=== PATIENT | female | born 1935 | race Caucasian/White ===

== ENCOUNTER 2018-11-08 15:45 | Inpatient (IN) ==
[2018-11-08] MEDS: NS 1000 ML 1,000 ML IV SCH (17:38)
[2018-11-08 17:53] LABS: BASOPHILS % (AUTO) 0.6 % (0.2-1.0); EOSINOPHILS # (AUTO) 0.1 x10^3/uL (0.0-0.2); EOSINOPHILS % (AUTO) 2.3 % (0.9-2.9); HEMATOCRIT 36.3 % (36.0-47.0); HEMOGLOBIN 12.3 g/dL (12.0-16.0); LYMPHOCYTES # (AUTO) 2.2 X10^3/uL (1.3-2.9); LYMPHOCYTES % (AUTO) 37.8 % (21.0-51.0); MEAN CORPUSCULAR HEMOGLOBIN 31.8 pg (27.0-34.0); MEAN CORPUSCULAR VOLUME 93.7 fL (80.0-100.0); MEAN PLATELET VOLUME 7.5 fL (7.4-11.0); MONOCYTES # (AUTO) 0.7 x10^3/uL (0.3-0.8); MONOCYTES % (AUTO) 11.2 % (0.0-13.0); NEUTROPHILS # (AUTO) 2.8 x10^3/uL (2.2-4.8); NEUTROPHILS % (AUTO) 48.1 % (42.0-75.0); PLATELET COUNT 216 X10^3/uL (150.0-450.0); RED BLOOD COUNT 3.87 X10^6/uL (3.5-5.4); RED CELL DISTRIBUTION WIDTH 13.8 % (11.6-16.5); WHITE BLOOD COUNT 5.9 X10^3/uL (3.6-10.0)
[2018-11-08 18:03] LABS: ALANINE AMINOTRANSFERASE 14 Units/L (12-78); ALBUMIN 3.5 g/dL (3.4-5.0); ALKALINE PHOSPHATASE 63 Units/L (46-116); ASPARTATE AMINO TRANSFERASE 15 Units/L (15-37); BLOOD UREA NITROGEN 12 mg/dL (7-18); CALCIUM 8.9 mg/dL (8.5-10.1); CHLORIDE 106 mmol/L (98-107); CREATININE 1.29 mg/dL (0.55-1.02); SODIUM 142 mmol/L (136-145); TOTAL PROTEIN 6.5 g/dL (6.4-8.2); eGFR NON BLACK RACES 42 (>60)
[2018-11-08] MEDS: MILK OF MAGNESIA PO SCH (20:21)
[2018-11-08] MEDS: COLACE CAP 100 MG PO SCH (20:21)
[2018-11-08 20:47] VITALS: BMI 19.0
[2018-11-09 01:31] LABS: BILIRUBIN,URINE NEGATIVE (NEGATIVE); BLOOD/HEMOGLOBIN,URINE 3+ (NEGATIVE); GLUCOSE, URINE NEGATIVE (NEGATIVE); KETONES,URINE NEGATIVE (NEGATIVE); LEUKOCYTE ESTERASE ,URINE 3+ (NEGATIVE); NITRITES,URINE NEGATIVE (NEGATIVE); PROTEIN,URINE 2+ (NEGATIVE); UROBILINOGEN,URINE NORMAL (NORMAL)
[2018-11-09] MEDS: NS 1000 ML 1,000 ML IV SCH ×3 (01:32→17:47)
[2018-11-09 01:43] LABS: APPEARANCE,URINE CLOUDY (CLEAR); BACTERIA,URINE 3+ /HPF (NEGATIVE); COLOR,URINE YELLOW (YELLOW); SQUAMOUS EPITHELIAL CELL,UR RARE /HPF (NEGATIVE)
[2018-11-09] MEDS ORDERED: ROCEPHIN VIAL 1 GRAM ONE (01:53)
[2018-11-09] MEDS: ROCEPHIN VIAL 1 GRAM IVP SCH ×2 (02:02→08:58)
--- NOTE | 2018-11-09 04:09 | RAD ---
Chest, 1 view Indication: Shortness of breath, dehydration Comparison: 08/17/2015 Findings: Cardiac silhouette is stable. There is large hiatal hernia. There are chronic interstitial changes of the lungs with hyperinflation, suggesting COPD. No dense infiltrates or pleural effusion. Chronic left humeral head/neck fracture. Generalized osteopenia. There is minimally displaced age-indeterminate fracture of the lateral left 8th rib. Impression: No acute chest process. Chronic findings suggesting COPD. Large hiatal hernia. Age-indeterminate left 8th rib fracture. Reported By:
[2018-11-09 05:40] LABS: BASOPHILS % (AUTO) 0.4 % (0.2-1.0); EOSINOPHILS # (AUTO) 0.1 x10^3/uL (0.0-0.2); EOSINOPHILS % (AUTO) 1.9 % (0.9-2.9); HEMATOCRIT 34.5 % (36.0-47.0); HEMOGLOBIN 11.8 g/dL (12.0-16.0); LYMPHOCYTES # (AUTO) 1.9 X10^3/uL (1.3-2.9); LYMPHOCYTES % (AUTO) 34.8 % (21.0-51.0); MEAN CORPUSCULAR HEMOGLOBIN 31.8 pg (27.0-34.0); MEAN CORPUSCULAR HGB CONC 34.1 g/dL (33.0-35.0); MEAN CORPUSCULAR VOLUME 93.3 fL (80.0-100.0); MEAN PLATELET VOLUME 7.6 fL (7.4-11.0); MONOCYTES # (AUTO) 0.6 x10^3/uL (0.3-0.8); MONOCYTES % (AUTO) 10.5 % (0.0-13.0); NEUTROPHILS # (AUTO) 2.9 x10^3/uL (2.2-4.8); NEUTROPHILS % (AUTO) 52.4 % (42.0-75.0); PLATELET COUNT 198 X10^3/uL (150.0-450.0); RED CELL DISTRIBUTION WIDTH 13.6 % (11.6-16.5); WHITE BLOOD COUNT 5.6 X10^3/uL (3.6-10.0)
[2018-11-09 05:58] LABS: ALANINE AMINOTRANSFERASE 12 Units/L (12-78); ALBUMIN 3.3 g/dL (3.4-5.0); ALKALINE PHOSPHATASE 57 Units/L (46-116); ASPARTATE AMINO TRANSFERASE 14 Units/L (15-37); BLOOD UREA NITROGEN 10 mg/dL (7-18); CALCIUM 8.3 mg/dL (8.5-10.1); CARBON DIOXIDE 26.6 mmol/L (21-32); CHLORIDE 109 mmol/L (98-107); COR CA(FOR HYPOALB) 8.9 mg/dL (8.5-10.1); CREATININE 1.05 mg/dL (0.55-1.02); SODIUM 143 mmol/L (136-145); TOTAL PROTEIN 6.1 g/dL (6.4-8.2); eGFR NON BLACK RACES 53 (>60)
[2018-11-09] MEDS ORDERED: CLEMASTINE PO PRN (10:24)
[2018-11-09] MEDS: ARICEPT TAB 10 MG PO SCH (10:53)
[2018-11-09] MEDS: MEGACE PO SCH ×2 (10:53→20:56)
[2018-11-09] MEDS: CYMBALTA PO SCH (10:53)
[2018-11-09] MEDS: SINGULAIR TAB 10 MG PO SCH (10:54)
[2018-11-09] MEDS: TOPROL XL PO SCH (10:54)
[2018-11-09] MEDS: SYNTHROID 25 mcg TAB PO SCH (10:54)
[2018-11-09] MEDS: OXYBUTYNIN CHLORIDE ER PO SCH (10:54)
[2018-11-09] MEDS: COLACE CAP 100 MG PO SCH ×3 (10:54→20:58)
[2018-11-09] MEDS: ASPIRIN EC 81 MG PO SCH (10:54)
[2018-11-09] MEDS: DUONEB 0.5 MG/3 MG NEB SCH ×4 (13:25→20:25)
--- NOTE | 2018-11-09 17:02 | DR.UPDATE ---
H&P Update History and Physical Update: H&P UPDATE FOR 11/08/2018 History and Physical reviewed and patient examined. Changes noted: Yes with the following: WAS SEEN IN THE OFFICE TODAY FOR COMPLAINTS OF SEVERE WEAKNESS. FAMILY REPORTS THAT SHE HAS NOT BEEN SLEEPING OR EATING WELL. SHE ALSO COMPLAINTED OF COUGH AND SHORTNESS OF BREATH. SHE HAS A HISTORY OF COPD. ON ARRIVAL, LABS REVEALED THE FOLLOWING ABNORMAL VALUES: CREATININE 1.29. URINALYSIS REVEALED: WBC 30-50, RBC 5-10, LEUKOCYTES 3+, BACTERIA 3+. CHEST XRAY REVEALED: NO ACUTE CHEST PROCESS. CHRONIC FINDINGS SUGGESTING COPD. LARGE HIATAL HERNIA. AGE INDETERINATE LEFT 8TH RIB FRACTURE. SHE WAS STARTED ON NORMAL SALINE AT 125ML/HR, ROCEPHIN 1GM IV DAILY, RESPIRATORY TX, AND SUPPLEMLENTAL OXYGEN. WE PLAN TO FOLLOW UP WITH AM LABS AND CONTINUE TO MONITOR.
--- NOTE | 2018-11-09 17:18 | PCM.PROG ---
Progress Note - Progress Note for Day of Date of Exam: 11/09/18 - Subjective Subjective: IS BEING TREATED FOR DEHYDRATION, COPD EXACERBATION, AND URINARY TRACT INFECTION. TODAY, SHE IS ALERT, LYING IN BED ON MORNING ROUNDS. SHE CONTINUES WITH COMPLAINTS OF WEAKNESS, COUGH, AND SHORTNESS OF BREATH. FAMILY REPORTS THAT SHE WAS AGITATED THROUGHOUT THE NIGHT AND DIDNT SLEEP WELL. ON EXAMINATION, HEART IS REGULAR IN RATE AND RHYTHM. BILATERAL LUNGS ARE NOTED WITH DIMINISHED LUNG SOUNDS THROUGHOUT. ABDOMEN IS ROUND, SOFT, AND NON-TENDER WITH NORMAL BOWEL SOUNDS NOTED IN ALL QUADRANTS. HER VITALS THIS MORNING ARE 97.6-54-18-99%-185/90. LABS WERE OBTAINED. ABNORMAL LAB VALUES INCLUDE THE FOLLOWING: HGB 11.8, HCT 34.5, CHLORIDE 109, CREATININE 1.05, CALCIUM 8.3, AST 1 4, TOTAL PROTEIN 6.1, ALBUMIN 3.3. SHE IS CURRENTLY RECEIVING NORMAL SALINE AND ROCEPHIN 1GM IV DAILY. TODAY, WE WILL INCREASE HER ZYPREXA TO 2.5MG PO BID. OTHERWISE, WE WILL CONTINUE WITH CURRENT PLAN OF CARE. WE WILL FOLLOW UP WITH AM LABS AND CONTINUE TO MONITOR. - Past Medical Family Social History Past Med/Fam/Surg Hx: No changes since H&P Allergies: Allergies azithromycin Allergy (Verified 11/08/18 18:08) methylprednisolone Allergy (Verified 11/08/18 18:08) - Review of Systems ROS: No change since H&P - Vital Signs and I&O's Vital Signs: Temperature 97.6 F Pulse Rate [Right] 62 Pulse Rate 60 Respiratory Rate 18 Blood Pressure [Left Arm] 181/88 Blood Pressure [Right Arm] 138/79 Blood Pressure 181/88 O2 Sat by Pulse Oximetry 98 Intake and Output: Intake & Output 11/07/18 11/08/18 11/09/18 11/10/18 11:59 11:59 11:59 11:59 Intake Total 1780 / 1780 360 / 360 Output Total 200 / 200 Balance 1779 1780 160 / 160 - Physical Exam Oriented: Person Eyes: Normal Ear: Normal Nose: Normal Throat: Normal Respiratory: Generalized, Diminished Cardiovascular: Normal : Normal Auscultation: Bowel Sounds: Normal Palpation: Normal Tenderness: Normal Skin: Normal Musculoskeletal: Normal Psychiatric: Normal Mood Description: Calm Affect: Normal Speech Pattern: Clear, Appropriate - Laboratory and Diagnostics Result Diagrams: 11/09/18 04:50 11/09/18 04:50 Labs: Laboratory WBC 5.6 X10^3/uL (3.6-10.0) 11/09/18 04:50 RBC 3.70 X10^6/uL (3.5-5.4) 11/09/18 04:50 Hgb 11.8 g/dL (12.0-16.0) L 11/09/18 04:50 Hct 34.5 % (36.0-47.0) L 11/09/18 04:50 MCV 93.3 fL (80.0-100.0) 11/09/18 04:50 MCH 31.8 pg (27.0-34.0) 11/09/18 04:50 MCHC 34.1 g/dL (33.0-35.0) 11/09/18 04:50 RDW 13.6 % (11.6-16.5) 11/09/18 04:50 Plt Count 198 X10^3/uL (150.0-450.0) 11/09/18 04:50 MPV 7.6 fL (7.4-11.0) 11/09/18 04:50 Neut % (Auto) 52.4 % (42.0-75.0) 11/09/18 04:50 Lymph % (Auto) 34.8 % (21.0-51.0) 11/09/18 04:50 [place] % (Auto) 10.5 % (0.0-13.0) 11/09/18 04:50 Eos % (Auto) 1.9 % (0.9-2.9) 11/09/18 04:50 Baso % (Auto) 0.4 % (0.2-1.0) 11/09/18 04:50 Neut # (Auto) 2.9 x10^3/uL (2.2-4.8) 11/09/18 04:50 Lymph # (Auto) 1.9 X10^3/uL (1.3-2.9) 11/09/18 04:50 [place] # (Auto) 0.6 x10^3/uL (0.3-0.8) 11/09/18 04:50 Eos # (Auto) 0.1 x10^3/uL (0.0-0.2) 11/09/18 04:50 Baso # (Auto) 0.0 X10^3/uL (0.0-0.1) 11/09/18 04:50 Absolute Nucleated RBC 0.1 /100WBC 11/09/18 04:50 Sodium 143 mmol/L (136-145) 11/09/18 04:50 Corrected Sodium TNP 11/09/18 04:50 Potassium 4.3 mmol/L (3.5-5.1) 11/09/18 04:50 Chloride 109 mmol/L (98-107) H 11/09/18 04:50 Carbon Dioxide 26.6 mmol/L (21-32) 11/09/18 04:50 BUN 10 mg/dL (7-18) 11/09/18 04:50 Creatinine 1.05 mg/dL (0.55-1.02) H 11/09/18 04:50 Est GFR (MDRD) Af Amer > 60 (>60) 11/09/18 04:50 Est GFR (MDRD) Non-Af 53 (>60) L 11/09/18 04:50 Glucose 88 mg/dL (65-99) 11/09/18 04:50 Calcium 8.3 mg/dL (8.5-10.1) L 11/09/18 04:50 Corrected Calcium 8.9 mg/dL (8.5-10.1) 11/09/18 04:50 Total Bilirubin 0.30 mg/dL (0.2-1.0) 11/09/18 04:50 AST 14 Units/L (15-37) L 11/09/18 04:50 ALT 12 Units/L (12-78) 11/09/18 04:50 Alkaline Phosphatase 57 Units/L (46-116) 11/09/18 04:50 Total Protein 6.1 g/dL (6.4-8.2) L 11/09/18 04:50 Albumin 3.3 g/dL (3.4-5.0) L 11/09/18 04:50 Globulin 2.8 g/dL (2.5-4.5) 11/09/18 04:50 Albumin/Globulin Ratio 1.2 Ratio (1.1-2.1) 11/09/18 04:50 Specimen Type Clean catch urine 11/09/18 01:20 Urine Color Yellow (YELLOW) 11/09/18 01:20 Urine Appearance Cloudy (CLEAR) 11/09/18 01:20 Urine pH 7.0 (5.0 - 8.0) 11/09/18 01:20 Ur Specific [place] 1.010 (1.000-1.030) 11/09/18 01:20 Urine Protein 2+ (NEGATIVE) 11/09/18 01:20 Urine Glucose (UA) Negative (NEGATIVE) 11/09/18 01:20 Urine Ketones Negative (NEGATIVE) 11/09/18 01:20 Urine Occult Blood 3+ (NEGATIVE) 11/09/18 01:20 Urine Nitrite Negative (NEGATIVE) 11/09/18 01:20 Urine Bilirubin Negative (NEGATIVE) 11/09/18 01:20 Urine Urobilinogen Normal (NORMAL) 11/09/18 01:20 Ur Leukocyte Esterase 3+ (NEGATIVE) 11/09/18 01:20 Urine RBC 5-10 /HPF (NONE SEEN) 11/09/18 01:20 Urine WBC 30-50 /HPF (NONE SEEN) 11/09/18 01:20 Ur Squamous Epith Cells Rare /HPF (NEGATIVE) 11/09/18 01:20 Urine Bacteria 3+ /HPF (NEGATIVE) 11/09/18 01:20 Ur Culture Indicated? No/not indicated 11/09/18 01:20 - Plan (1) Dehydration Status: Acute Plan: NORMAL SALINE AT 125ML/HR, CONTINUE TO MONITOR (2) Urinary tract infection Status: Acute Qualifiers: Urinary tract infection type: acute cystitis Hematuria presence: with hematuria Qualified Code(s): N30.01 - Acute cystitis with hematuria Plan: ROCEPHIN 1GM IV DAILY, CONTINUE TO MONITOR (3) COPD exacerbation Status: Acute Plan: RESPIRATORY TX, SUPPLEMENTAL OXYGEN, CONTINUE TO MONITOR
[2018-11-09] MEDS ORDERED: ROBITUSSIN DM PO PRN (18:30)
[2018-11-09] MEDS: ZOCOR TAB 20 MG PO SCH (20:56)
[2018-11-09] MEDS: NAMENDA TAB 10 MG PO SCH (20:56)
[2018-11-09] MEDS: MILK OF MAGNESIA PO SCH (20:58)
[2018-11-09] MEDS: TUSSIONEX PENNKINETIC SUSP PO PRN (23:32)
[2018-11-10] MEDS: NS 1000 ML 1,000 ML IV SCH (01:38)
[2018-11-10 05:32] LABS: BASOPHILS % (AUTO) 0.5 % (0.2-1.0); EOSINOPHILS # (AUTO) 0.1 x10^3/uL (0.0-0.2); EOSINOPHILS % (AUTO) 1.9 % (0.9-2.9); LYMPHOCYTES # (AUTO) 1.8 X10^3/uL (1.3-2.9); MEAN CORPUSCULAR HEMOGLOBIN 32.2 pg (27.0-34.0); MEAN CORPUSCULAR HGB CONC 34.5 g/dL (33.0-35.0); MEAN CORPUSCULAR VOLUME 93.4 fL (80.0-100.0); MEAN PLATELET VOLUME 7.6 fL (7.4-11.0); MONOCYTES # (AUTO) 0.6 x10^3/uL (0.3-0.8); MONOCYTES % (AUTO) 11.1 % (0.0-13.0); NEUTROPHILS # (AUTO) 3.3 x10^3/uL (2.2-4.8); NEUTROPHILS % (AUTO) 56.5 % (42.0-75.0); PLATELET COUNT 173 X10^3/uL (150.0-450.0); RED BLOOD COUNT 3.43 X10^6/uL (3.5-5.4); RED CELL DISTRIBUTION WIDTH 13.9 % (11.6-16.5); WHITE BLOOD COUNT 5.9 X10^3/uL (3.6-10.0)
[2018-11-10 05:47] LABS: ALANINE AMINOTRANSFERASE 12 Units/L (12-78); ALBUMIN 3.1 g/dL (3.4-5.0); ALKALINE PHOSPHATASE 53 Units/L (46-116); ASPARTATE AMINO TRANSFERASE 13 Units/L (15-37); BLOOD UREA NITROGEN 11 mg/dL (7-18); CALCIUM 8.5 mg/dL (8.5-10.1); CARBON DIOXIDE 24.7 mmol/L (21-32); CHLORIDE 108 mmol/L (98-107); COR CA(FOR HYPOALB) 9.2 mg/dL (8.5-10.1); CREATININE 1.11 mg/dL (0.55-1.02); SODIUM 142 mmol/L (136-145); TOTAL PROTEIN 5.7 g/dL (6.4-8.2); eGFR NON BLACK RACES 50 (>60)
[2018-11-10] MEDS: SYNTHROID 25 mcg TAB PO SCH (06:07)
--- NOTE | 2018-11-10 07:13 | RAD ---
HISTORY: Shortness of breath Study: Chest AP portable Comparison: 11/09/2018 Findings: The heart is within normal limits in size. No congestive heart failure is noted. No acute alveolar infiltrates or pleural effusions are identified. Hyperinflation is present. There is a hiatal hernia present. IMPRESSION: No acute infiltrates Large hiatal hernia Reported By:
[2018-11-10] MEDS: DUONEB 0.5 MG/3 MG NEB SCH ×4 (08:27→20:41)
[2018-11-10] MEDS: COLACE CAP 100 MG PO SCH ×2 (08:49→20:32)
[2018-11-10] MEDS: ARICEPT TAB 10 MG PO SCH (08:49)
[2018-11-10] MEDS: TOPROL XL PO SCH (08:49)
[2018-11-10] MEDS: SINGULAIR TAB 10 MG PO SCH (08:49)
[2018-11-10] MEDS: NAMENDA TAB 10 MG PO SCH ×2 (08:49→20:32)
[2018-11-10] MEDS: ROCEPHIN VIAL 1 GRAM IVP SCH (08:50)
[2018-11-10] MEDS: MEGACE PO SCH ×2 (08:50→20:32)
[2018-11-10] MEDS: CYMBALTA PO SCH (08:50)
[2018-11-10] MEDS: ASPIRIN EC 81 MG PO SCH (08:50)
[2018-11-10] MEDS: OXYBUTYNIN CHLORIDE ER PO SCH (08:50)
[2018-11-10] MEDS: ZOCOR TAB 20 MG PO SCH (20:32)
[2018-11-10] MEDS: MILK OF MAGNESIA PO SCH (20:32)
[2018-11-11] MEDS: TUSSIONEX PENNKINETIC SUSP PO PRN (05:00)
[2018-11-11 05:31] LABS: BASOPHILS % (AUTO) 0.6 % (0.2-1.0); EOSINOPHILS # (AUTO) 0.2 x10^3/uL (0.0-0.2); EOSINOPHILS % (AUTO) 3.1 % (0.9-2.9); HEMATOCRIT 34.3 % (36.0-47.0); HEMOGLOBIN 11.9 g/dL (12.0-16.0); LYMPHOCYTES # (AUTO) 2.1 X10^3/uL (1.3-2.9); LYMPHOCYTES % (AUTO) 31.6 % (21.0-51.0); MEAN CORPUSCULAR HEMOGLOBIN 32.2 pg (27.0-34.0); MEAN CORPUSCULAR HGB CONC 34.8 g/dL (33.0-35.0); MEAN CORPUSCULAR VOLUME 92.7 fL (80.0-100.0); MEAN PLATELET VOLUME 7.8 fL (7.4-11.0); MONOCYTES # (AUTO) 0.7 x10^3/uL (0.3-0.8); MONOCYTES % (AUTO) 10.6 % (0.0-13.0); NEUTROPHILS # (AUTO) 3.6 x10^3/uL (2.2-4.8); NEUTROPHILS % (AUTO) 54.1 % (42.0-75.0); PLATELET COUNT 193 X10^3/uL (150.0-450.0); WHITE BLOOD COUNT 6.7 X10^3/uL (3.6-10.0)
[2018-11-11 05:45] LABS: ALANINE AMINOTRANSFERASE 14 Units/L (12-78); ALBUMIN 3.3 g/dL (3.4-5.0); ALKALINE PHOSPHATASE 60 Units/L (46-116); ASPARTATE AMINO TRANSFERASE 17 Units/L (15-37); BLOOD UREA NITROGEN 10 mg/dL (7-18); CALCIUM 8.7 mg/dL (8.5-10.1); CARBON DIOXIDE 26.3 mmol/L (21-32); CHLORIDE 108 mmol/L (98-107); COR CA(FOR HYPOALB) 9.3 mg/dL (8.5-10.1); CREATININE 1.03 mg/dL (0.55-1.02); SODIUM 144 mmol/L (136-145); eGFR NON BLACK RACES 54 (>60)
[2018-11-11] MEDS: SYNTHROID 25 mcg TAB PO SCH (06:01)
[2018-11-11] MEDS: NS 1000 ML 1,000 ML IV SCH ×2 (06:25→17:57)
--- NOTE | 2018-11-11 08:41 | RAD ---
HISTORY: Shortness of breath Study: Chest AP portable Comparison: 11/10/2018 Findings: The heart is within normal limits in size. The cristi are normal. The lungs are free of acute infiltrates. No pleural effusions are identified. There is a large hiatal hernia present. The bony thorax is unremarkable with the exception of osteopenia and an old healed left humeral neck fracture. IMPRESSION: No acute infiltrates Large hiatal hernia Reported By:
--- NOTE | 2018-11-11 08:45 | PCM.PROG ---
Progress Note - Progress Note for Day of Date of Exam: 11/10/18 - Subjective Subjective: IS BEING TREATED FOR DEHYDRATION, COPD EXACERBATION, AND URINARY TRACT INFECTION. TODAY, SHE IS ALERT, LYING IN BED ON MORNING ROUNDS. SHE CONTINUES WITH COMPLAINTS OF WEAKNESS, COUGH, AND SHORTNESS OF BREATH. FAMILY REPORTS THAT SHE WAS RESTLESS THROUGHOUT THE NIGHT AND IS NOT EATING WELL. THEY ALSO REPORT THAT SHE HAS AN UNSTEADY GAIT. ON EXAMINATION, HEART IS REGULAR IN RATE AND RHYTHM. BILATERAL LUNGS ARE NOTED WITH DIMINISHED LUNG SOUNDS THROUGHOUT. ABDOMEN IS ROUND, SOFT, AND NON-TENDER WITH NORMAL BOWEL SOUNDS NOTED IN ALL QUADRANTS. HER VITALS THIS MORNING ARE 97.8-7 0-20-96%-144/86. LABS WERE OBTAINED. ABNORMAL LAB VALUES INCLUDE THE FOLLOWING: RBC 3.43, HGB 11.0, HCT 32.0, CHLORIDE 108, CREATININE 1.11, AST 13, TOTAL PROTEIN 5.7, ALBUMIN 3.1. SHE IS CURRENTLY RECEIVING NORMAL SALINE AND ROCEPHIN 1GM IV DAILY. TODAY, WE WILL OBTAIN AN ECHO AND HAVE PHYSICAL THERAPY WORK WITH HER. OTHERWISE, WE WILL CONTINUE WITH CURRENT PLAN OF CARE. WE WILL FOLLOW UP WITH AM LABS AND CONTINUE TO MONITOR. - Past Medical Family Social History Past Med/Fam/Surg Hx: No changes since H&P Allergies: Allergies azithromycin Allergy (Verified 11/08/18 18:08) methylprednisolone Allergy (Verified 11/08/18 18:08) - Review of Systems ROS: No change since H&P - Vital Signs and I&O's Vital Signs: Temperature 98.0 F Pulse Rate [Right] 66 Pulse Rate 73 Respiratory Rate 18 Blood Pressure [Left Arm] 118/75 Blood Pressure [Right Arm] 145/90 Blood Pressure 181/88 O2 Sat by Pulse Oximetry 97 Intake and Output: Intake & Output 11/08/18 11/09/18 11/10/18 11/11/18 11:59 11:59 11:59 11:59 Intake Total 1779 / 0 1959 / 1959 580 / 580 Output Total 200 / 200 Balance 178 / 1780 1760 / 1760 580 / 580 - Physical Exam Oriented: Person Eyes: Normal Ear: Normal Nose: Normal Throat: Normal Respiratory: Generalized, Diminished Cardiovascular: Normal : Normal Auscultation: Bowel Sounds: Normal Palpation: Normal Tenderness: Normal Skin: Decreased Turgur Musculoskeletal: Normal Psychiatric: Normal Mood Description: Calm Affect: Normal Speech Pattern: Clear, Appropriate - Laboratory and Diagnostics Result Diagrams: 11/11/18 04:50 11/11/18 04:50 Labs: 11/09/18 01:20 Urine,Clean Catch Urine Culture - Final Escherichia Coli Laboratory WBC 6.7 X10^3/uL (3.6-10.0) 11/11/18 04:50 RBC 3.70 X10^6/uL (3.5-5.4) 11/11/18 04:50 Hgb 11.9 g/dL (12.0-16.0) L 11/11/18 04:50 Hct 34.3 % (36.0-47.0) L 11/11/18 04:50 MCV 92.7 fL (80.0-100.0) 11/11/18 04:50 MCH 32.2 pg (27.0-34.0) 11/11/18 04:50 MCHC 34.8 g/dL (33.0-35.0) 11/11/18 04:50 RDW 14.0 % (11.6-16.5) 11/11/18 04:50 Plt Count 193 X10^3/uL (150.0-450.0) 11/11/18 04:50 MPV 7.8 fL (7.4-11.0) 11/11/18 04:50 Neut % (Auto) 54.1 % (42.0-75.0) 11/11/18 04:50 Lymph % (Auto) 31.6 % (21.0-51.0) 11/11/18 04:50 [place] % (Auto) 10.6 % (0.0-13.0) 11/11/18 04:50 Eos % (Auto) 3.1 % (0.9-2.9) H 11/11/18 04:50 Baso % (Auto) 0.6 % (0.2-1.0) 11/11/18 04:50 Neut # (Auto) 3.6 x10^3/uL (2.2-4.8) 11/11/18 04:50 Lymph # (Auto) 2.1 X10^3/uL (1.3-2.9) 11/11/18 04:50 [place] # (Auto) 0.7 x10^3/uL (0.3-0.8) 11/11/18 04:50 Eos # (Auto) 0.2 x10^3/uL (0.0-0.2) 11/11/18 04:50 Baso # (Auto) 0.0 X10^3/uL (0.0-0.1) 11/11/18 04:50 Absolute Nucleated RBC 0.0 /100WBC 11/11/18 04:50 Sodium 144 mmol/L (136-145) 11/11/18 04:50 Corrected Sodium TNP 11/11/18 04:50 Potassium 3.8 mmol/L (3.5-5.1) 11/11/18 04:50 Chloride 108 mmol/L (98-107) H 11/11/18 04:50 Carbon Dioxide 26.3 mmol/L (21-32) 11/11/18 04:50 BUN 10 mg/dL (7-18) 11/11/18 04:50 Creatinine 1.03 mg/dL (0.55-1.02) H 11/11/18 04:50 Est GFR (MDRD) Af Amer > 60 (>60) 11/11/18 04:50 Est GFR (MDRD) Non-Af 54 (>60) L 11/11/18 04:50 Glucose 93 mg/dL (65-99) 11/11/18 04:50 Calcium 8.7 mg/dL (8.5-10.1) 11/11/18 04:50 Corrected Calcium 9.3 mg/dL (8.5-10.1) 11/11/18 04:50 Total Bilirubin 0.30 mg/dL (0.2-1.0) 11/11/18 04:50 AST 17 Units/L (15-37) 11/11/18 04:50 ALT 14 Units/L (12-78) 11/11/18 04:50 Alkaline Phosphatase 60 Units/L (46-116) 11/11/18 04:50 Total Protein 6.0 g/dL (6.4-8.2) L 11/11/18 04:50 Albumin 3.3 g/dL (3.4-5.0) L 11/11/18 04:50 Globulin 2.7 g/dL (2.5-4.5) 11/11/18 04:50 Albumin/Globulin Ratio 1.2 Ratio (1.1-2.1) 11/11/18 04:50 Specimen Type Clean catch urine 11/09/18 01:20 Urine Color Yellow (YELLOW) 11/09/18 01:20 Urine Appearance Cloudy (CLEAR) 11/09/18 01:20 Urine pH 7.0 (5.0 - 8.0) 11/09/18 01:20 Ur Specific [place] 1.010 (1.000-1.030) 11/09/18 01:20 Urine Protein 2+ (NEGATIVE) 11/09/18 01:20 Urine Glucose (UA) Negative (NEGATIVE) 11/09/18 01:20 Urine Ketones Negative (NEGATIVE) 11/09/18 01:20 Urine Occult Blood 3+ (NEGATIVE) 11/09/18 01:20 Urine Nitrite Negative (NEGATIVE) 11/09/18 01:20 Urine Bilirubin Negative (NEGATIVE) 11/09/18 01:20 Urine Urobilinogen Normal (NORMAL) 11/09/18 01:20 Ur Leukocyte Esterase 3+ (NEGATIVE) 11/09/18 01:20 Urine RBC 5-10 /HPF (NONE SEEN) 11/09/18 01:20 Urine WBC 30-50 /HPF (NONE SEEN) 11/09/18 01:20 Ur Squamous Epith Cells Rare /HPF (NEGATIVE) 11/09/18 01:20 Urine Bacteria 3+ /HPF (NEGATIVE) 11/09/18 01:20 Ur Culture Indicated? No/not indicated 11/09/18 01:20 - Plan (1) Dehydration Status: Acute Plan: NORMAL SALINE AT 125ML/HR, CONTINUE TO MONITOR (2) Urinary tract infection Status: Acute Qualifiers: Urinary tract infection type: acute cystitis Hematuria presence: with hematuria Qualified Code(s): N30.01 - Acute cystitis with hematuria Plan: ROCEPHIN 1GM IV DAILY, CONTINUE TO MONITOR (3) COPD exacerbation Status: Acute Plan: RESPIRATORY TX, SUPPLEMENTAL OXYGEN, CONTINUE TO MONITOR (4) Generalized weakness Status: Acute Plan: PT EVALUATION (5) Failure to thrive Status: Acute Qualifiers: Failure to thrive age range: in adult Qualified Code(s): R62.7 - Adult failure to thrive
[2018-11-11] MEDS: MEGACE PO SCH ×2 (08:48→20:21)
[2018-11-11] MEDS: TOPROL XL PO SCH (08:48)
[2018-11-11] MEDS: ASPIRIN EC 81 MG PO SCH (08:48)
[2018-11-11] MEDS: COLACE CAP 100 MG PO SCH ×2 (08:48→20:21)
[2018-11-11] MEDS: SINGULAIR TAB 10 MG PO SCH (08:48)
[2018-11-11] MEDS: NAMENDA TAB 10 MG PO SCH ×2 (08:49→20:21)
[2018-11-11] MEDS: OXYBUTYNIN CHLORIDE ER PO SCH (08:49)
[2018-11-11] MEDS: ARICEPT TAB 10 MG PO SCH (08:49)
[2018-11-11] MEDS: CYMBALTA PO SCH (09:01)
[2018-11-11] MEDS: DUONEB 0.5 MG/3 MG NEB SCH ×4 (09:58→21:18)
[2018-11-11] MEDS: PROCALAMINE 3 % 1,000 ML IV SCH (10:11)
[2018-11-11] MEDS: ROCEPHIN VIAL 1 GRAM IVP SCH (10:11)
[2018-11-11] MEDS: ZOCOR TAB 20 MG PO SCH (20:21)
[2018-11-11] MEDS: MILK OF MAGNESIA PO SCH (20:22)
[2018-11-12] MEDS: PROCALAMINE 3 % 1,000 ML IV SCH (04:15)
[2018-11-12 05:20] LABS: BASOPHILS % (AUTO) 0.6 % (0.2-1.0); EOSINOPHILS # (AUTO) 0.2 x10^3/uL (0.0-0.2); HEMATOCRIT 32.9 % (36.0-47.0); HEMOGLOBIN 11.2 g/dL (12.0-16.0); LYMPHOCYTES # (AUTO) 1.8 X10^3/uL (1.3-2.9); LYMPHOCYTES % (AUTO) 32.5 % (21.0-51.0); MEAN CORPUSCULAR HGB CONC 34.1 g/dL (33.0-35.0); MEAN PLATELET VOLUME 7.8 fL (7.4-11.0); MONOCYTES # (AUTO) 0.6 x10^3/uL (0.3-0.8); MONOCYTES % (AUTO) 11.4 % (0.0-13.0); NEUTROPHILS # (AUTO) 2.9 x10^3/uL (2.2-4.8); NEUTROPHILS % (AUTO) 51.5 % (42.0-75.0); PLATELET COUNT 183 X10^3/uL (150.0-450.0); RED CELL DISTRIBUTION WIDTH 14.3 % (11.6-16.5); WHITE BLOOD COUNT 5.5 X10^3/uL (3.6-10.0)
[2018-11-12 05:42] LABS: ALANINE AMINOTRANSFERASE 16 Units/L (12-78); ALBUMIN 3.1 g/dL (3.4-5.0); ALKALINE PHOSPHATASE 55 Units/L (46-116); ASPARTATE AMINO TRANSFERASE 16 Units/L (15-37); BLOOD UREA NITROGEN 13 mg/dL (7-18); CALCIUM 8.6 mg/dL (8.5-10.1); CARBON DIOXIDE 25.5 mmol/L (21-32); CHLORIDE 106 mmol/L (98-107); COR CA(FOR HYPOALB) 9.3 mg/dL (8.5-10.1); CREATININE 0.93 mg/dL (0.55-1.02); SODIUM 142 mmol/L (136-145); TOTAL PROTEIN 5.9 g/dL (6.4-8.2); eGFR NON BLACK RACES > 60 (>60)
[2018-11-12] MEDS: SYNTHROID 25 mcg TAB PO SCH (06:00)
--- NOTE | 2018-11-12 07:03 | RAD ---
HISTORY: 83-year-old female with shortness of breath. History of COPD. Study: Frontal view of the chest. Comparison: Chest radiograph 11/11/2018 Findings: Unchanged large hiatal hernia. The trachea is midline. The cardiac silhouette is stably enlarged with continued prominence interstitium perihilar lung markings. The lungs are clear without focal consolidation, effusion or pneumothorax. Soft tissues are unremarkable. Chronic fracture left humerus with osseous structures otherwise unremarkable. IMPRESSION: 1. No acute cardiopulmonary disease with cardiomegaly and COPD. Reported By:
[2018-11-12] MEDS: TOPROL XL PO SCH ×2 (09:15→14:40)
[2018-11-12] MEDS: ROCEPHIN VIAL 1 GRAM IVP SCH (09:15)
[2018-11-12] MEDS: DUONEB 0.5 MG/3 MG NEB SCH ×3 (09:24→16:09)
[2018-11-12] MEDS ORDERED: XYLOCAINE 1 % (PLAIN) ONE (09:25)
[2018-11-12] MEDS ORDERED: LR 1000 ML IV 1,000 ML ONE (09:29)
[2018-11-12] MEDS ORDERED: BACITRACIN VIAL ONE (09:32)
--- NOTE | 2018-11-12 12:00 | RAD ---
HISTORY: 83-year-old female for catheter placement. Study: Frontal view of the chest. Comparison: Chest radiograph this date. Findings: Interval placement right chest chemo port via subclavian approach with distal tip overlying the right atrium. No hemopneumothorax. No other interval change. IMPRESSION: 1. Right chest wall chemo port as above in apparent good position. Reported By:
[2018-11-12] MEDS: COLACE CAP 100 MG PO SCH (13:12)
[2018-11-12] MEDS: ARICEPT TAB 10 MG PO SCH (13:12)
[2018-11-12] MEDS: OXYBUTYNIN CHLORIDE ER PO SCH (13:12)
[2018-11-12] MEDS: SINGULAIR TAB 10 MG PO SCH (13:12)
[2018-11-12] MEDS: NAMENDA TAB 10 MG PO SCH (13:12)
[2018-11-12] MEDS: MEGACE PO SCH (13:13)
[2018-11-12] MEDS: CYMBALTA PO SCH (13:15)
[2018-11-12] MEDS ORDERED: VERSED ONE (15:31)
[2018-11-12] MEDS ORDERED: DIPRIVAN VIAL ONE (15:31)
[2018-11-12 15:43] VITALS: BP 154/88
--- NOTE | 2018-11-15 10:04 | PCM.PROG ---
Progress Note - Progress Note for Day of Date of Exam: 11/11/18 - Subjective Subjective: IS BEING TREATED FOR DEHYDRATION, COPD EXACERBATION, AND URINARY TRACT INFECTION. TODAY, SHE IS ALERT, LYING IN BED ON MORNING ROUNDS. SHE CONTINUES WITH COMPLAINTS OF WEAKNESS, COUGH, AND SHORTNESS OF BREATH. FAMILY REPORTS THAT SHE RESTED BETTER THROUGHOUT THE NIGHT. SHE CONTINUES WITH AN UNSTEADY GAIT. ON EXAMINATION, HEART IS REGULAR IN RATE AND RHYTHM. BILATERAL LUNGS ARE NOTED WITH DIMINISHED LUNG SOUNDS THROUGHOUT. ABDOMEN IS ROUND, SOFT, AND NON-TENDER WITH NORMAL BOWEL SOUNDS NOTED IN ALL QUADRANTS. HER VITALS THIS MORNING ARE 98.0-66-18-97%RA-118/75. LABS WERE OBTAINED. ABNORMAL LAB VALUES INCLUDE THE FOLLOWING: HGB 11.9, HCT 34.3, CHLORIDE 108, CREATININE 1.03, TOTAL PROTEIN 6.0, ALBUMIN 3.3. SHE IS CURRENTLY RECEIVING NORMAL SALINE AND ROCEPHIN 1GM IV DAILY. TODAY, WE WILL CONTINUE WITH CURRENT PLAN OF CARE. OTHERWISE, WE WILL FOLLOW UP WITH AM LABS AND CONTINUE TO MONITOR. - Past Medical Family Social History Past Med/Fam/Surg Hx: No changes since H&P Allergies: Allergies azithromycin Allergy (Verified 11/08/18 18:08) methylprednisolone Allergy (Verified 11/08/18 18:08) - Review of Systems ROS: No change since H&P - Vital Signs and I&O's Vital Signs: Temperature 97.7 F Pulse Rate [Right] 85 Pulse Rate 90 Respiratory Rate 18 Blood Pressure [Left Arm] 140/87 Blood Pressure [Right Arm] 154/88 Blood Pressure 181/88 O2 Sat by Pulse Oximetry 96 Intake and Output: Intake & Output 11/12/18 11/13/18 11/14/18 11/15/18 11:59 11:59 11:59 11:59 Intake Total 2340 / 2340 120 / 120 Output Total 500 / 500 Balance 1840 / 1840 120 / 120 - Physical Exam Oriented: Person Eyes: Normal Ear: Normal Nose: Normal Throat: Normal Respiratory: Generalized, Diminished Cardiovascular: Normal : Normal Auscultation: Bowel Sounds: Normal Palpation: Normal Tenderness: Normal Skin: Decreased Turgur Musculoskeletal: Normal Psychiatric: Normal Mood Description: Calm Affect: Normal Speech Pattern: Clear, Appropriate - Laboratory and Diagnostics Result Diagrams: 11/12/18 04:36 11/12/18 04:36 Labs: 11/09/18 01:20 Urine,Clean Catch Urine Culture - Final Escherichia Coli Laboratory WBC 5.5 X10^3/uL (3.6-10.0) 11/12/18 04:36 RBC 3.50 X10^6/uL (3.5-5.4) 11/12/18 04:36 Hgb 11.2 g/dL (12.0-16.0) L 11/12/18 04:36 Hct 32.9 % (36.0-47.0) L 11/12/18 04:36 MCV 94.0 fL (80.0-100.0) 11/12/18 04:36 MCH 32.0 pg (27.0-34.0) 11/12/18 04:36 MCHC 34.1 g/dL (33.0-35.0) 11/12/18 04:36 RDW 14.3 % (11.6-16.5) 11/12/18 04:36 Plt Count 183 X10^3/uL (150.0-450.0) 11/12/18 04:36 MPV 7.8 fL (7.4-11.0) 11/12/18 04:36 Neut % (Auto) 51.5 % (42.0-75.0) 11/12/18 04:36 Lymph % (Auto) 32.5 % (21.0-51.0) 11/12/18 04:36 [place] % (Auto) 11.4 % (0.0-13.0) 11/12/18 04:36 Eos % (Auto) 4.0 % (0.9-2.9) H 11/12/18 04:36 Baso % (Auto) 0.6 % (0.2-1.0) 11/12/18 04:36 Neut # (Auto) 2.9 x10^3/uL (2.2-4.8) 11/12/18 04:36 Lymph # (Auto) 1.8 X10^3/uL (1.3-2.9) 11/12/18 04:36 [place] # (Auto) 0.6 x10^3/uL (0.3-0.8) 11/12/18 04:36 Eos # (Auto) 0.2 x10^3/uL (0.0-0.2) 11/12/18 04:36 Baso # (Auto) 0.0 X10^3/uL (0.0-0.1) 11/12/18 04:36 Absolute Nucleated RBC 0.0 /100WBC 11/12/18 04:36 Sodium 142 mmol/L (136-145) 11/12/18 04:36 Corrected Sodium TNP 11/12/18 04:36 Potassium 4.0 mmol/L (3.5-5.1) 11/12/18 04:36 Chloride 106 mmol/L (98-107) 11/12/18 04:36 Carbon Dioxide 25.5 mmol/L (21-32) 11/12/18 04:36 BUN 13 mg/dL (7-18) 11/12/18 04:36 Creatinine 0.93 mg/dL (0.55-1.02) 11/12/18 04:36 Est GFR (MDRD) Af Amer > 60 (>60) 11/12/18 04:36 Est GFR (MDRD) Non-Af > 60 (>60) 11/12/18 04:36 Glucose 93 mg/dL (65-99) 11/12/18 04:36 Calcium 8.6 mg/dL (8.5-10.1) 11/12/18 04:36 Corrected Calcium 9.3 mg/dL (8.5-10.1) 11/12/18 04:36 Total Bilirubin 0.30 mg/dL (0.2-1.0) 11/12/18 04:36 AST 16 Units/L (15-37) 11/12/18 04:36 ALT 16 Units/L (12-78) 11/12/18 04:36 Alkaline Phosphatase 55 Units/L (46-116) 11/12/18 04:36 Total Protein 5.9 g/dL (6.4-8.2) L 11/12/18 04:36 Albumin 3.1 g/dL (3.4-5.0) L 11/12/18 04:36 Globulin 2.8 g/dL (2.5-4.5) 11/12/18 04:36 Albumin/Globulin Ratio 1.1 Ratio (1.1-2.1) 11/12/18 04:36 Specimen Type Clean catch urine 11/09/18 01:20 Urine Color Yellow (YELLOW) 11/09/18 01:20 Urine Appearance Cloudy (CLEAR) 11/09/18 01:20 Urine pH 7.0 (5.0 - 8.0) 11/09/18 01:20 Ur Specific [place] 1.010 (1.000-1.030) 11/09/18 01:20 Urine Protein 2+ (NEGATIVE) 11/09/18 01:20 Urine Glucose (UA) Negative (NEGATIVE) 11/09/18 01:20 Urine Ketones Negative (NEGATIVE) 11/09/18 01:20 Urine Occult Blood 3+ (NEGATIVE) 11/09/18 01:20 Urine Nitrite Negative (NEGATIVE) 11/09/18 01:20 Urine Bilirubin Negative (NEGATIVE) 11/09/18 01:20 Urine Urobilinogen Normal (NORMAL) 11/09/18 01:20 Ur Leukocyte Esterase 3+ (NEGATIVE) 11/09/18 01:20 Urine RBC 5-10 /HPF (NONE SEEN) 11/09/18 01:20 Urine WBC 30-50 /HPF (NONE SEEN) 11/09/18 01:20 Ur Squamous Epith Cells Rare /HPF (NEGATIVE) 11/09/18 01:20 Urine Bacteria 3+ /HPF (NEGATIVE) 11/09/18 01:20 Ur Culture Indicated? No/not indicated 11/09/18 01:20 - Plan (1) Dehydration Status: Acute Plan: NORMAL SALINE AT 125ML/HR, CONTINUE TO MONITOR (2) Urinary tract infection Status: Acute Qualifiers: Urinary tract infection type: acute cystitis Hematuria presence: with hematuria Qualified Code(s): N30.01 - Acute cystitis with hematuria Plan: ROCEPHIN 1GM IV DAILY, CONTINUE TO MONITOR (3) COPD exacerbation Status: Acute Plan: RESPIRATORY TX, SUPPLEMENTAL OXYGEN, CONTINUE TO MONITOR (4) Generalized weakness Status: Acute Plan: PT EVALUATION (5) Failure to thrive Status: Acute Qualifiers: Failure to thrive age range: in adult Qualified Code(s): R62.7 - Adult failure to thrive
== END 2018-11-12 16:35 | disposition hospice, home (50) | DRG 690 ==
LOC: MED/SURG
PROVIDERS: ADMIT Internal Medicine; ATTEND Internal Medicine
DX: G30.0 Alzheimer's disease with early onset; D51.9 Vitamin B12 deficiency anemia, unspecified; R53.1 Weakness; R62.7 Adult failure to thrive; R06.02 Shortness of breath; E03.8 Other specified hypothyroidism; J44.1 Chronic obstructive pulmonary disease with (acute) exacerbation; E46 Unspecified protein-calorie malnutrition; X58.XXXA Exposure to other specified factors, initial encounter; K44.9 Diaphragmatic hernia without obstruction or gangrene; R26.89 Other abnormalities of gait and mobility; S22.32XA Fracture of one rib, left side, initial encounter for closed fracture; B96.29 Other Escherichia coli [E. coli] as the cause of diseases classified elsewhere; N30.01 Acute cystitis with hematuria; E86.0 Dehydration; I87.2 Venous insufficiency (chronic) (peripheral)
CPT/HCPCS: 36415; 71010; 71045; 76000; 80053; 81001; 85025; 87086; 87088; 87186; 93306; 94640; 94760; 97116; 97162; 97166; 97530; 97535; 99100; A4222; B5200; J3490; S0179; G0378; J0696; J1642; J2250; J2704; J7030; J7120; J7620

== ENCOUNTER 2018-12-10 08:26 | Inpatient (IN) ==
[2018-12-10 08:38] VITALS: BMI 19.3
[2018-12-10] MEDS ORDERED: CATAPRES TAB 0.1 MG PO ONE (09:05)
[2018-12-10] MEDS ORDERED: CATAPRES TAB 0.1 MG ONE (09:06)
[2018-12-10 09:12] LABS: BASOPHILS % (AUTO) 0.5 % (0.2-1.0); EOSINOPHILS # (AUTO) 0.4 x10^3/uL (0.0-0.2); EOSINOPHILS % (AUTO) 6.9 % (0.9-2.9); HEMATOCRIT 32.9 % (36.0-47.0); HEMOGLOBIN 11.1 g/dL (12.0-16.0); LYMPHOCYTES # (AUTO) 1.5 X10^3/uL (1.3-2.9); LYMPHOCYTES % (AUTO) 25.3 % (21.0-51.0); MEAN CORPUSCULAR HEMOGLOBIN 31.8 pg (27.0-34.0); MEAN CORPUSCULAR HGB CONC 33.6 g/dL (33.0-35.0); MEAN CORPUSCULAR VOLUME 94.7 fL (80.0-100.0); MEAN PLATELET VOLUME 7.3 fL (7.4-11.0); MONOCYTES # (AUTO) 0.6 x10^3/uL (0.3-0.8); MONOCYTES % (AUTO) 9.8 % (0.0-13.0); NEUTROPHILS # (AUTO) 3.4 x10^3/uL (2.2-4.8); NEUTROPHILS % (AUTO) 57.5 % (42.0-75.0); PLATELET COUNT 166 X10^3/uL (150.0-450.0); RED BLOOD COUNT 3.47 X10^6/uL (3.5-5.4); RED CELL DISTRIBUTION WIDTH 13.6 % (11.6-16.5)
--- NOTE | 2018-12-10 09:21 | DR.EXTPAIN ---
HPI Time seen Time Seen by Provider: 12/10/18 08:33 PCP Primary Care Physician: SANFORD Complaint/Symptoms Chief Complaint Doctor Comments: Two days ago, fell at home, complained of left hip pain according spouse. She has not been feeling well; lying around house. Denies vomiting, diarrhea or fever. Weak. No recent history of heart problems. PMH HTN,Arthritis, Alzheimer, CKD,Altered mental Status. Chief Complaint:: FAMILY STATED THAT PATIENT FELL TIMES 2 DAYS AND IS C/O OF HIP AND LEGS HURTING. STATED THAT HE BELIEVES HER LEGS JUST GAVE OUT ON HER THAT HE HAD WALKED OUT OF THE ROOM AND CAME BACK AND SHE WAS LYING ON THE FLOOR. Source History Provided: Patient and EMS Mode of arrival Mode of Arrival: EMS Timing Onset of Chief Complaint: 12/08/18 PMH PMH Past Medical History: Yes Past Medical History: Alzheimers, Anxiety, Arthritis, COPD, Coronary Artery Dis ease, Dementia, Depression, Dyslipidemia, GERD and Hypertension Past Surgical History: Yes Surgical History: Cholecystectomy and Hysterectomy Family History History of Family Medical Conditions: Yes Family Medical History: Diabetes Mellitus, [place], Coronary Artery Disease and Hyper tension Social History Does patient currently use any type of tobacco product: No Have you used tobacco products in the last 12 months: No Type of Tobacco Use: None Does any household member use tobacco: No Alcohol Use: None Do you use any recreational Drugs:: No Lives With: Family Lives Where: Home infectious screening In the last 2 months have you had wt loss of >10#?: NO Have you had fever, night sweats or hemotysis?: No Have you traveled outside the country in the last 6 months?: No Isolation: Standard ROS Review of Systems Constitutional: No Symptoms Reported Eyes: No Symptoms Reported ENTM: No Symptoms Reported Respiratoy: No Symptoms Reported Cardiovascular: No Symptoms Reported Gastrointestinal/Abdominal: No Symptoms Reported Genitourinary: No Symptoms Reported Neurological: No Symptoms Reported Musculoskeletal: No Symptoms Reported Integumentary: No Symptoms Reported Endocrine: No Symptoms Reported Psychiatric: Other (Altered Mental Status) All Other Systems: Reviewed and Negative PE Vital Signs Vitals: Temperature 97.5 F Pulse Rate [Right Brachial] 72 Pulse Rate 69 Respiratory Rate 20 Blood Pressure [Left Arm] 202/149 Blood Pressure [Right Arm] 154/88 Blood Pressure 243/129 O2 Sat by Pulse Oximetry 97 General Limitations: No Limitations General Appearance: Alert and Other (dyspnea) Head Head Exam: Normal Inspection, Atraumatic, Normocephalic and Other Eyes Eye exam: Normal Appearance, PERRL and EOMI ENT ENT Exam: Normal Exam, Normal Oropharynx and Normal External Ear Exam Neck Neck Exam: Normal Inspection and Full ROM Chest Chest Inspection: Normal Inspection and Symmetric Chest Wall Rise Respiratory Respiratory Exam: Normal Lung Sounds Bilat and Other (Dyspnea) Respiratory Exam: Bilateral: Clear to Auscultation Cardiovascular Cardiovascular Exam: Regular Rate and Normal Rhythm Abdominal Exam Abdominal Exam: Normal Inspection, Normal Bowel Sounds and Soft Upper Extremities Shoulder Exam: Normal Inspection and Full ROM Arm Exam: Normal Inspection and Full ROM Elbow Exam: Normal Inspection and Full ROM Forearm Exam: Normal Inspection and Full ROM Hand Exam: Normal Inspection and Full ROM Neuromotor Exam: Normal Exam, Wrist Extension and Other (weak grasp bilaterally) Neurosensory Exam: Normal Exam Upper Ext. Vascular Exam: Capillary Refill Lower Extremities Hip/Pelvis Exam: Normal Inspection and Tenderness (not on exam; spouse states she claimes of pain) Knee Exam: Normal Inspection and Abrasion Lower Leg Exam: Normal Inspection and Full ROM Ankle Exam: Normal Inspection Foot/Toe Exam: Normal Inspection Neurovascular/Tendon Exam: Normal Capillary Refill Back Back Exam: Normal Inspection and Full ROM Neurological Neurological Exam: Alert, Oriented X3 and CN II-XII Intact Psychiatric Psychiatric Exam: Normal Affect and Normal Mood Skin Skin Exam: Warm and Dry Type of Lesion: Rash Distribution: Generalized MDM Differential Diagnosis Differential Diagnosis: Fracture, Sprain and Other (PE, Influenza) ROR Labs Reviewed Laboratory Results Reviewed?: Yes Result Diagrams: 12/10/18 08:55 12/10/18 08:55 Laboratory: WBC 6.0 X10^3/uL (3.6-10.0) 12/10/18 08:55 RBC 3.47 X10^6/uL (3.5-5.4) L 12/10/18 08:55 Hgb 11.1 g/dL (12.0-16.0) L 12/10/18 08:55 Hct 32.9 % (36.0-47.0) L 12/10/18 08:55 MCV 94.7 fL (80.0-100.0) 12/10/18 08:55 MCH 31.8 pg (27.0-34.0) 12/10/18 08:55 MCHC 33.6 g/dL (33.0-35.0) 12/10/18 08:55 RDW 13.6 % (11.6-16.5) 12/10/18 08:55 Plt Count 166 X10^3/uL (150.0-450.0) 12/10/18 08:55 MPV 7.3 fL (7.4-11.0) L 12/10/18 08:55 Neut % (Auto) 57.5 % (42.0-75.0) 12/10/18 08:55 Lymph % (Auto) 25.3 % (21.0-51.0) 12/10/18 08:55 [place] % (Auto) 9.8 % (0.0-13.0) 12/10/18 08:55 Eos % (Auto) 6.9 % (0.9-2.9) H 12/10/18 08:55 Baso % (Auto) 0.5 % (0.2-1.0) 12/10/18 08:55 Neut # (Auto) 3.4 x10^3/uL (2.2-4.8) 12/10/18 08:55 Lymph # (Auto) 1.5 X10^3/uL (1.3-2.9) 12/10/18 08:55 [place] # (Auto) 0.6 x10^3/uL (0.3-0.8) 12/10/18 08:55 Eos # (Auto) 0.4 x10^3/uL (0.0-0.2) H 12/10/18 08:55 Baso # (Auto) 0.0 X10^3/uL (0.0-0.1) 12/10/18 08:55 Absolute Nucleated RBC 0.0 /100WBC 12/10/18 08:55 Other Results Comments: Findings: There is a port present on the right. The heart is mildly enlarged. No congestive heart failure is noted. No acute alveolar infil trates or pleural effusions are identified. There is a hiatal hernia present. The bony thorax is unremarkable with the exception of osteopenia. Impression: Mild cardiomegaly without congestive heart failure, clear lungs, osteopenia. XRAY XRAY Interpreted by: Radiologist EKG Rate: 66 [place]: Normal Rhythm: NSR
--- NOTE | 2018-12-10 09:23 | RAD ---
HISTORY: Shortness of breath Study: Chest AP portable Comparison: 11/12/2018 Findings: There is a port present on the right. The heart is mildly enlarged. No congestive heart failure is noted. No acute alveolar infiltrates or pleural effusions are identified. There is a hiatal hernia present. The bony thorax is unremarkable with the exception of osteopenia. IMPRESSION: Mild cardiomegaly without congestive heart failure Lungs clear Osteopenia Reported By:
[2018-12-10 09:43] LABS: ALANINE AMINOTRANSFERASE 15 Units/L (12-78); ALBUMIN 3.5 g/dL (3.4-5.0); ALKALINE PHOSPHATASE 65 Units/L (46-116); ASPARTATE AMINO TRANSFERASE 18 Units/L (15-37); BLOOD UREA NITROGEN 11 mg/dL (7-18); CALCIUM 9.1 mg/dL (8.5-10.1); CARBON DIOXIDE 25.6 mmol/L (21-32); CHLORIDE 108 mmol/L (98-107); CKMB % 0.8 % (<4); CREATINE KINASE 127 Units/L (26-192); CREATINE KINASE MB < 1.0 ng/mL (0-4.0); CREATININE 1.15 mg/dL (0.55-1.02); SODIUM 143 mmol/L (136-145); TOTAL PROTEIN 6.5 g/dL (6.4-8.2); TROPONIN I < 0.02 ng/mL (0-1.5); eGFR NON BLACK RACES 48 (>60)
--- NOTE | 2018-12-10 10:15 | RAD ---
HISTORY: Fall 2 days ago, hip pain. Study: Bilateral two-view hips Comparison: Plain films and CT scan of the pelvis done 01/24/2015. Technique: AP pelvis and bilateral frog-leg lateral views of the hips are provided. Findings: There is a nondisplaced fracture of the midportion of the left inferior pubic ramus. This was not present on the prior studies. There is an old avulsion fracture of the greater trochanter of the left hip which was present on prior studies and is unchanged. No evidence of acute femoral head or neck fracture is seen. Both femoral heads are well seated within the acetabular regions on both views. IMPRESSION: Nondisplaced fracture of the midportion of the left inferior pubic ramus. This appears to be acute or subacute and not present on the 2015 studies. Old avulsion fracture of the greater trochanter on the left. No acute femoral head or neck fracture is seen. Reported By:
--- NOTE | 2018-12-10 10:29 | DR.EXTPAIN ---
HPI Time seen Time Seen by Provider: 12/10/18 08:33 PCP Primary Care Physician: SANFORD Complaint/Symptoms Chief Complaint:: FAMILY STATED THAT PATIENT FELL TIMES 2 DAYS AND IS C/O OF HIP AND LEGS HURTING. STATED THAT HE BELIEVES HER LEGS JUST GAVE OUT ON HER THAT HE HAD WALKED OUT OF THE ROOM AND CAME BACK AND SHE WAS LYING ON THE FLOOR. Source History Provided: Patient and EMS Mode of arrival Mode of Arrival: EMS Timing Onset of Chief Complaint: 12/08/18 PMH PMH Past Medical History: Yes Past Medical History: Alzheimers, Anxiety, Arthritis, COPD, Coronary Artery Disease, Dementia, Depression, Dyslipidemia, GERD and Hypertension Past Surgical History: Yes Surgical History: Cholecystectomy and Hysterectomy Family History History of Family Medical Conditions: Yes Family Medical History: Diabetes Mellitus, [place], Coronary Artery Disease and Hypertension Social History Does patient currently use any type of tobacco product: No Have you used tobacco products in the last 12 months: No Type of Tobacco Use: None Does any household member use tobacco: No Alcohol Use: None Do you use any recreational Drugs:: No Lives With: Family Lives Where: Home infectious screening In the last 2 months have you had wt loss of >10#?: NO Have you had fever, night sweats or hemotysis?: No Have you traveled outside the country in the last 6 months?: No Isolation: Standard ROS Review of Systems Constitutional: No Symptoms Reported Eyes: No Symptoms Reported ENTM: No Symptoms Reported Respiratoy: Short of Breath Gastrointestinal/Abdominal: No Symptoms Reported Genitourinary: No Symptoms Reported Neurological: Weakness Integumentary: No Symptoms Reported Hematologic/Lymphatic: No Symptoms Reported Endocrine: No Symptoms Reported Psychiatric: No Symptoms Reported All Other Systems: Reviewed and Negative PE Vital Signs Vitals: Temperature 97.5 F Pulse Rate [Right Brachial] 68 Pulse Rate 69 Respiratory Rate 20 Blood Pressure [Left Arm] 184/99 Blood Pressure [Right Arm] 154/88 Blood Pressure 243/129 O2 Sat by Pulse Oximetry 98 General Limitations: Physical Limitation General Appearance: Alert and In No Apparent Distress Head Head Exam: Normal Inspection, Atraumatic and Normocephalic Eyes Eye exam: Normal Appearance, PERRL and EOMI ENT ENT Exam: Normal Exam, Normal Oropharynx and Normal External Ear Exam Neck Neck Exam: Normal Inspection, Full ROM and Trachea Midline Chest Chest Inspection: Normal Inspection and Symmetric Chest Wall Rise Respiratory Respiratory Exam: Respiratory Distress Respiratory Exam: Bilateral: Clear to Auscultation Cardiovascular Cardiovascular Exam: Regular Rate and Normal Rhythm Abdominal Exam Abdominal Exam: Normal Inspection, Normal Bowel Sounds and Soft Extremities Extremities Exam: Other Upper Extremities Arm Exam: Normal Inspection Elbow Exam: Normal Inspection Hand Exam: Normal Inspection Neurosensory Exam: Normal Exam Lower Extremities Hip/Pelvis Exam: Normal Inspection Knee Exam: Normal Inspection Lower Leg Exam: Normal Inspection Foot/Toe Exam: Normal Inspection Neurovascular/Tendon Exam: Normal Capillary Refill Gait Exam: Observed & Limited by Pain Back Back Exam: Normal Inspection Neurological Neurological Exam: Alert, Oriented X3 and CN II-XII Intact Psychiatric Psychiatric Exam: Flat Affect Skin Skin Exam: Warm, Dry and Intact MDM Differential Diagnosis Differential Diagnosis: Contusion and Fracture COURSE Consultation Called: 10:35 Consultation Comments: Patient discussed with Dr Lira who agreed to admit for further evaluation ROR Labs Reviewed Laboratory Results Reviewed?: Yes Result Diagrams: 12/10/18 08:55 12/10/18 08:55 Laboratory: WBC 6.0 X10^3/uL (3.6-10.0) 12/10/18 08:55 RBC 3.47 X10^6/uL (3.5-5.4) L 12/10/18 08:55 Hgb 11.1 g/dL (12.0-16.0) L 12/10/18 08:55 Hct 32.9 % (36.0-47.0) L 12/10/18 08:55 MCV 94.7 fL (80.0-100.0) 12/10/18 08:55 MCH 31.8 pg (27.0-34.0) 12/10/18 08:55 MCHC 33.6 g/dL (33.0-35.0) 12/10/18 08:55 RDW 13.6 % (11.6-16.5) 12/10/18 08:55 Plt Count 166 X10^3/uL (150.0-450.0) 12/10/18 08:55 MPV 7.3 fL (7.4-11.0) L 12/10/18 08:55 Neut % (Auto) 57.5 % (42.0-75.0) 12/10/18 08:55 Lymph % (Auto) 25.3 % (21.0-51.0) 12/10/18 08:55 [place] % (Auto) 9.8 % (0.0-13.0) 12/10/18 08:55 Eos % (Auto) 6.9 % (0.9-2.9) H 12/10/18 08:55 Baso % (Auto) 0.5 % (0.2-1.0) 12/10/18 08:55 Neut # (Auto) 3.4 x10^3/uL (2.2-4.8) 12/10/18 08:55 Lymph # (Auto) 1.5 X10^3/uL (1.3-2.9) 12/10/18 08:55 [place] # (Auto) 0.6 x10^3/uL (0.3-0.8) 12/10/18 08:55 Eos # (Auto) 0.4 x10^3/uL (0.0-0.2) H 12/10/18 08:55 Baso # (Auto) 0.0 X10^3/uL (0.0-0.1) 12/10/18 08:55 Absolute Nucleated RBC 0.0 /100WBC 12/10/18 08:55 D-Dimer 2220 ng/mL (0-400) H* 12/10/18 08:55 Sodium 143 mmol/L (136-145) 12/10/18 08:55 Corrected Sodium TNP 12/10/18 08:55 Potassium 3.9 mmol/L (3.5-5.1) 12/10/18 08:55 Chloride 108 mmol/L (98-107) H 12/10/18 08:55 Carbon Dioxide 25.6 mmol/L (21-32) 12/10/18 08:55 BUN 11 mg/dL (7-18) 12/10/18 08:55 Creatinine 1.15 mg/dL (0.55-1.02) H 12/10/18 08:55 Est GFR (MDRD) Af Amer 58 (>60) L 12/10/18 08:55 Est GFR (MDRD) Non-Af 48 (>60) L 12/10/18 08:55 Glucose 85 mg/dL (65-99) 12/10/18 08:55 Calcium 9.1 mg/dL (8.5-10.1) 12/10/18 08:55 Corrected Calcium TNP 12/10/18 08:55 Total Bilirubin 0.60 mg/dL (0.2-1.0) 12/10/18 08:55 AST 18 Units/L (15-37) 12/10/18 08:55 ALT 15 Units/L (12-78) 12/10/18 08:55 Alkaline Phosphatase 65 Units/L (46-116) 12/10/18 08:55 Creatine Kinase 127 Units/L (26-192) 12/10/18 08:55 CK-MB (CK-2) < 1.0 ng/mL (0-4.0) 12/10/18 08:55 CK/CKMB % Calc 0.8 % (<4) 12/10/18 08:55 Troponin I < 0.02 ng/mL (0-1.5) 12/10/18 08:55 Total Protein 6.5 g/dL (6.4-8.2) 12/10/18 08:55 Albumin 3.5 g/dL (3.4-5.0) 12/10/18 08:55 Globulin 3.0 g/dL (2.5-4.5) 12/10/18 08:55 Albumin/Globulin Ratio 1.2 Ratio (1.1-2.1) 12/10/18 08:55 Influenza Type A (PCR) Negative (NEGATIVE) 12/10/18 09:06 Influenza Type B (PCR) Negative (NEGATIVE) 12/10/18 09:06 Other Results Comments: Bilateral hips: There is a nondisplaced fracture of the midportion of the left inferior pubic ramus. This was not present on the prior studies (01/24/15). There is an old avulsion fracture of the greater trochanter of the left hip which was present on prior studies and is unchanged. No evidence of acute femoral head or neck fracture is seen. Both femoral heads are well seated within the acetabular regions on both views. CTA: No evidence of acute pulmonary thromboembolic disease. No evidence of acute pulmonary abnormality. XRAY XRAY Interpreted by: Radiologist ADDITIONAL NOTES Additional Notes Additional Notes: Admitted to the service of Dr. Flores
--- NOTE | 2018-12-10 11:21 | CT ---
STUDY: CTA CHEST WITH CONTRAST History: Shortness of breath, chronic. Status post fall 2 days ago. Elevated D-dimer. Comparison: None. Technique: Multiple axial images of the chest were obtained from the thoracic inlet to the upper abdomen after the administration of IV contrast. Image acquisition was optimized for evaluation of pulmonary arterial system. 3D, coronal and sagittal reformatted images were performed and reviewed. Automated exposure control (AEC) was utilized to adjust the MA and/or kV. Findings: There is no evidence of abnormal filling defect in the main pulmonary arteries and their major branches to indicate presence of acute pulmonary thromboembolic disease. There is no evidence of aortic aneurysm or dissection. There is no significant pericardial effusion. Multiple lymph nodes, likely reactive, are noted in the mediastinum. No pathologically enlarged lymph nodes are identified. There is some atelectasis versus scarring in the both lung bases. There are underlying changes of COPD in both lungs. There is no evidence of consolidation, significant infiltrate, effusion or pneumothorax. There is a large hiatal hernia. There appears to be a calculus in a dilated left renal pelvis, partially imaged. There are multiple chronic appearing compression deformities in the thoracic spine. There are multiple chronic rib fractures on the left. IMPRESSION: 1. No evidence of acute pulmonary thromboembolic disease. 2. No evidence of acute pulmonary abnormality. 3. COPD. 4. Large hiatal hernia. 5. Possible partially obstructing calculus in left kidney. Clinical correlation is recommended. Would consider further evaluation with CT abdomen and pelvis as clinically warranted. 6. Multiple chronic compression deformities involving the thoracic spine. Chronic left rib fractures. Reported By:
[2018-12-10 13:31] LABS: BILIRUBIN,URINE NEGATIVE (NEGATIVE); BLOOD/HEMOGLOBIN,URINE 4+ (NEGATIVE); GLUCOSE, URINE NEGATIVE (NEGATIVE); KETONES,URINE NEGATIVE (NEGATIVE); LEUKOCYTE ESTERASE ,URINE NEGATIVE (NEGATIVE); NITRITES,URINE NEGATIVE (NEGATIVE); PROTEIN,URINE 2+ (NEGATIVE); UROBILINOGEN,URINE NORMAL (NORMAL)
[2018-12-10] MEDS: MORPHINE SULFATE INJ 2 MG INJ IVP PRN (14:01)
[2018-12-10 14:03] LABS: APPEARANCE,URINE CLEAR (CLEAR); COLOR,URINE YELLOW (YELLOW)
[2018-12-10 14:04] LABS: BACTERIA,URINE TRACE /HPF (NEGATIVE); CALCIUM OXALATE CRYSTALS,UR FEW /HPF (NEGATIVE); SQUAMOUS EPITHELIAL CELL,UR FEW /HPF (NEGATIVE)
[2018-12-10] MEDS ORDERED: NS 1000 ML 1,000 ML ONE (15:56)
[2018-12-10] MEDS: NS 1000 ML 1,000 ML IV SCH (16:05)
[2018-12-10] MEDS ORDERED: SYNTHROID 25 mcg TAB PO SCH (16:22)
[2018-12-10] MEDS ORDERED: CLEMASTINE PO PRN (16:22)
[2018-12-10] MEDS ORDERED: CYMBALTA PO SCH (16:22)
[2018-12-10] MEDS ORDERED: OXYBUTYNIN CHLORIDE ER PO SCH (16:22)
[2018-12-10] MEDS: DUONEB 0.5 MG/3 MG NEB SCH ×3 (16:28→21:48)
[2018-12-10] MEDS: ZyPREXA TAB 5 MG PO SCH (20:43)
[2018-12-10] MEDS: COLACE CAP 100 MG PO SCH (20:43)
[2018-12-10] MEDS: NAMENDA TAB 10 MG PO SCH (20:43)
[2018-12-10] MEDS: MEGACE PO SCH (20:43)
[2018-12-10] MEDS: ZOCOR TAB 20 MG PO SCH (20:43)
[2018-12-10] MEDS ORDERED: COZAAR PO SCH (21:00)
[2018-12-11] MEDS: MORPHINE SULFATE INJ 2 MG INJ IVP PRN ×2 (00:37→09:58)
[2018-12-11] MEDS: NS 1000 ML 1,000 ML IV SCH ×2 (02:00→17:16)
[2018-12-11] MEDS: DUONEB 0.5 MG/3 MG NEB SCH ×3 (05:23→21:00)
[2018-12-11 05:28] LABS: BASOPHILS % (AUTO) 0.7 % (0.2-1.0); EOSINOPHILS # (AUTO) 0.3 x10^3/uL (0.0-0.2); EOSINOPHILS % (AUTO) 6.3 % (0.9-2.9); HEMATOCRIT 28.9 % (36.0-47.0); HEMOGLOBIN 9.8 g/dL (12.0-16.0); LYMPHOCYTES # (AUTO) 1.3 X10^3/uL (1.3-2.9); LYMPHOCYTES % (AUTO) 27.1 % (21.0-51.0); MEAN CORPUSCULAR HEMOGLOBIN 31.9 pg (27.0-34.0); MEAN CORPUSCULAR HGB CONC 33.8 g/dL (33.0-35.0); MEAN CORPUSCULAR VOLUME 94.4 fL (80.0-100.0); MEAN PLATELET VOLUME 7.4 fL (7.4-11.0); MONOCYTES # (AUTO) 0.6 x10^3/uL (0.3-0.8); MONOCYTES % (AUTO) 11.7 % (0.0-13.0); NEUTROPHILS # (AUTO) 2.6 x10^3/uL (2.2-4.8); NEUTROPHILS % (AUTO) 54.2 % (42.0-75.0); PLATELET COUNT 142 X10^3/uL (150.0-450.0); RED BLOOD COUNT 3.06 X10^6/uL (3.5-5.4); RED CELL DISTRIBUTION WIDTH 13.6 % (11.6-16.5); WHITE BLOOD COUNT 4.8 X10^3/uL (3.6-10.0)
[2018-12-11 05:40] LABS: ALANINE AMINOTRANSFERASE 13 Units/L (12-78); ALBUMIN 2.9 g/dL (3.4-5.0); ALKALINE PHOSPHATASE 56 Units/L (46-116); ASPARTATE AMINO TRANSFERASE 15 Units/L (15-37); BLOOD UREA NITROGEN 9 mg/dL (7-18); CALCIUM 8.6 mg/dL (8.5-10.1); CARBON DIOXIDE 25.5 mmol/L (21-32); CHLORIDE 109 mmol/L (98-107); COR CA(FOR HYPOALB) 9.5 mg/dL (8.5-10.1); CREATININE 1.04 mg/dL (0.55-1.02); SODIUM 143 mmol/L (136-145); TOTAL PROTEIN 5.6 g/dL (6.4-8.2); eGFR NON BLACK RACES 54 (>60)
[2018-12-11] MEDS: SYNTHROID 25 mcg TAB PO SCH (06:32)
[2018-12-11] MEDS: MEGACE PO SCH ×2 (09:51→21:24)
[2018-12-11] MEDS: NAMENDA TAB 10 MG PO SCH ×2 (09:51→21:31)
[2018-12-11] MEDS: ARICEPT TAB 10 MG PO SCH (09:51)
[2018-12-11] MEDS: COLACE CAP 100 MG PO SCH ×2 (09:51→21:24)
[2018-12-11] MEDS: OXYBUTYNIN CHLORIDE ER PO SCH (09:51)
[2018-12-11] MEDS: TOPROL XL PO SCH (09:51)
[2018-12-11] MEDS: ASPIRIN EC 81 MG PO SCH (09:51)
[2018-12-11] MEDS: CYMBALTA PO SCH (09:54)
[2018-12-11] MEDS ORDERED: TOPROL XL PO ONE (15:43)
[2018-12-11] MEDS: ZyPREXA TAB 5 MG PO SCH (21:24)
[2018-12-11] MEDS: ZOCOR TAB 20 MG PO SCH (21:24)
[2018-12-12] MEDS: MORPHINE SULFATE INJ 2 MG INJ IVP PRN ×3 (02:32→23:35)
[2018-12-12] MEDS: NS 1000 ML 1,000 ML IV SCH ×2 (04:00→17:15)
[2018-12-12 05:45] LABS: BASOPHILS % (AUTO) 0.7 % (0.2-1.0); EOSINOPHILS # (AUTO) 0.4 x10^3/uL (0.0-0.2); HEMATOCRIT 27.2 % (36.0-47.0); HEMOGLOBIN 9.3 g/dL (12.0-16.0); LYMPHOCYTES # (AUTO) 1.3 X10^3/uL (1.3-2.9); LYMPHOCYTES % (AUTO) 28.4 % (21.0-51.0); MEAN CORPUSCULAR HGB CONC 34.1 g/dL (33.0-35.0); MEAN CORPUSCULAR VOLUME 93.8 fL (80.0-100.0); MEAN PLATELET VOLUME 7.1 fL (7.4-11.0); MONOCYTES # (AUTO) 0.5 x10^3/uL (0.3-0.8); MONOCYTES % (AUTO) 11.1 % (0.0-13.0); NEUTROPHILS # (AUTO) 2.3 x10^3/uL (2.2-4.8); NEUTROPHILS % (AUTO) 51.8 % (42.0-75.0); PLATELET COUNT 154 X10^3/uL (150.0-450.0); RED CELL DISTRIBUTION WIDTH 13.4 % (11.6-16.5); WHITE BLOOD COUNT 4.4 X10^3/uL (3.6-10.0)
[2018-12-12] MEDS: DUONEB 0.5 MG/3 MG NEB SCH ×4 (05:45→21:14)
[2018-12-12 05:59] LABS: ALANINE AMINOTRANSFERASE 11 Units/L (12-78); ALBUMIN 2.6 g/dL (3.4-5.0); ALKALINE PHOSPHATASE 53 Units/L (46-116); ASPARTATE AMINO TRANSFERASE 17 Units/L (15-37); BLOOD UREA NITROGEN 9 mg/dL (7-18); CALCIUM 8.4 mg/dL (8.5-10.1); CARBON DIOXIDE 24.7 mmol/L (21-32); CHLORIDE 110 mmol/L (98-107); COR CA(FOR HYPOALB) 9.5 mg/dL (8.5-10.1); CREATININE 0.95 mg/dL (0.55-1.02); SODIUM 144 mmol/L (136-145); TOTAL PROTEIN 5.2 g/dL (6.4-8.2); eGFR NON BLACK RACES 60 (>60)
[2018-12-12] MEDS: SYNTHROID 25 mcg TAB PO SCH (06:39)
[2018-12-12] MEDS: ASPIRIN EC 81 MG PO SCH (09:38)
[2018-12-12] MEDS: ARICEPT TAB 10 MG PO SCH (09:39)
[2018-12-12] MEDS: TOPROL XL PO SCH (09:39)
[2018-12-12] MEDS: MEGACE PO SCH ×2 (09:39→20:37)
[2018-12-12] MEDS: OXYBUTYNIN CHLORIDE ER PO SCH (09:39)
[2018-12-12] MEDS: NAMENDA TAB 10 MG PO SCH ×2 (09:39→20:36)
[2018-12-12] MEDS: COLACE CAP 100 MG PO SCH ×2 (09:39→20:36)
[2018-12-12] MEDS: CYMBALTA PO SCH (09:43)
[2018-12-12] MEDS: ZyPREXA TAB 5 MG PO SCH (20:37)
[2018-12-12] MEDS: ZOCOR TAB 20 MG PO SCH (20:37)
[2018-12-13] MEDS: NS 1000 ML 1,000 ML IV SCH ×2 (04:01→18:20)
[2018-12-13 04:56] LABS: BASOPHILS % (AUTO) 0.7 % (0.2-1.0); EOSINOPHILS # (AUTO) 0.4 x10^3/uL (0.0-0.2); EOSINOPHILS % (AUTO) 6.1 % (0.9-2.9); HEMATOCRIT 30.9 % (36.0-47.0); HEMOGLOBIN 10.2 g/dL (12.0-16.0); LYMPHOCYTES # (AUTO) 1.3 X10^3/uL (1.3-2.9); LYMPHOCYTES % (AUTO) 20.8 % (21.0-51.0); MEAN CORPUSCULAR HEMOGLOBIN 31.2 pg (27.0-34.0); MEAN CORPUSCULAR VOLUME 94.6 fL (80.0-100.0); MEAN PLATELET VOLUME 7.6 fL (7.4-11.0); MONOCYTES # (AUTO) 0.7 x10^3/uL (0.3-0.8); MONOCYTES % (AUTO) 11.1 % (0.0-13.0); NEUTROPHILS # (AUTO) 3.8 x10^3/uL (2.2-4.8); NEUTROPHILS % (AUTO) 61.3 % (42.0-75.0); PLATELET COUNT 169 X10^3/uL (150.0-450.0); RED BLOOD COUNT 3.27 X10^6/uL (3.5-5.4); RED CELL DISTRIBUTION WIDTH 13.7 % (11.6-16.5); WHITE BLOOD COUNT 6.1 X10^3/uL (3.6-10.0)
[2018-12-13 05:11] LABS: ALANINE AMINOTRANSFERASE 15 Units/L (12-78); ALKALINE PHOSPHATASE 62 Units/L (46-116); ASPARTATE AMINO TRANSFERASE 18 Units/L (15-37); BLOOD UREA NITROGEN 9 mg/dL (7-18); CALCIUM 8.5 mg/dL (8.5-10.1); CARBON DIOXIDE 24.4 mmol/L (21-32); CHLORIDE 107 mmol/L (98-107); COR CA(FOR HYPOALB) 9.3 mg/dL (8.5-10.1); CREATININE 0.98 mg/dL (0.55-1.02); SODIUM 142 mmol/L (136-145); TOTAL PROTEIN 5.8 g/dL (6.4-8.2); eGFR NON BLACK RACES 58 (>60)
[2018-12-13] MEDS ORDERED: MICRO K EXTEN CAP 10 MEQ PO PRN (05:40)
[2018-12-13] MEDS ORDERED: K-RIDER 10 MEQ/NS 100 ML 10 MEQ/100 ML BAG IV PRN (05:40)
[2018-12-13] MEDS ORDERED: POTASSIUM CHL 60 MEQ/NS 0.45% 500 ML IV PRN (05:40)
[2018-12-13] MEDS ORDERED: KLOR-CON PO PRN (05:40)
[2018-12-13] MEDS ORDERED: K-DUR TAB 20 MEQ PO PRN (05:40)
[2018-12-13] MEDS ORDERED: MAGNESIUM SULFATE 1 GRAM/100 mL PREMIX 1 GM/100 ML BAG IV PRN (05:40)
[2018-12-13] MEDS ORDERED: POTASSIUM CHLORIDE LIQ 20 MEQ UDC PO PRN (05:40)
[2018-12-13] MEDS ORDERED: POTASSIUM CHL 40 MEQ/NS 0.45% 500 ML IV PRN (05:40)
[2018-12-13] MEDS: DUONEB 0.5 MG/3 MG NEB SCH ×6 (06:05→22:00)
[2018-12-13] MEDS: SYNTHROID 25 mcg TAB PO SCH (06:32)
[2018-12-13] MEDS: MORPHINE SULFATE INJ 2 MG INJ IVP PRN ×2 (06:33→22:25)
[2018-12-13] MEDS: COLACE CAP 100 MG PO SCH ×2 (09:08→21:24)
[2018-12-13] MEDS: TOPROL XL PO SCH (09:08)
[2018-12-13] MEDS: OXYBUTYNIN CHLORIDE ER PO SCH (09:08)
[2018-12-13] MEDS: CYMBALTA PO SCH (09:09)
[2018-12-13] MEDS: ARICEPT TAB 10 MG PO SCH (09:09)
[2018-12-13] MEDS: MEGACE PO SCH ×2 (09:09→21:24)
[2018-12-13] MEDS: NAMENDA TAB 10 MG PO SCH ×2 (09:09→21:24)
[2018-12-13] MEDS: ASPIRIN EC 81 MG PO SCH (09:09)
[2018-12-13] MEDS: LOVENOX INJ 30 MG SYR SC SCH ×2 (11:00→21:24)
[2018-12-13] MEDS: COZAAR PO SCH ×2 (15:53→23:03)
[2018-12-13] MEDS: ZOCOR TAB 20 MG PO SCH (21:24)
[2018-12-13] MEDS: ZyPREXA TAB 5 MG PO SCH (21:24)
[2018-12-14] MEDS: MORPHINE SULFATE INJ 2 MG INJ IVP PRN (04:20)
[2018-12-14] MEDS: DUONEB 0.5 MG/3 MG NEB SCH ×4 (05:30→21:15)
[2018-12-14 06:12] LABS: BASOPHILS % (AUTO) 0.5 % (0.2-1.0); EOSINOPHILS # (AUTO) 0.4 x10^3/uL (0.0-0.2); EOSINOPHILS % (AUTO) 6.4 % (0.9-2.9); HEMATOCRIT 28.4 % (36.0-47.0); HEMOGLOBIN 9.8 g/dL (12.0-16.0); LYMPHOCYTES # (AUTO) 1.3 X10^3/uL (1.3-2.9); LYMPHOCYTES % (AUTO) 22.1 % (21.0-51.0); MEAN CORPUSCULAR HEMOGLOBIN 32.1 pg (27.0-34.0); MEAN CORPUSCULAR HGB CONC 34.6 g/dL (33.0-35.0); MEAN CORPUSCULAR VOLUME 92.9 fL (80.0-100.0); MEAN PLATELET VOLUME 7.1 fL (7.4-11.0); MONOCYTES # (AUTO) 0.6 x10^3/uL (0.3-0.8); MONOCYTES % (AUTO) 11.2 % (0.0-13.0); NEUTROPHILS # (AUTO) 3.5 x10^3/uL (2.2-4.8); NEUTROPHILS % (AUTO) 59.8 % (42.0-75.0); PLATELET COUNT 186 X10^3/uL (150.0-450.0); RED BLOOD COUNT 3.06 X10^6/uL (3.5-5.4); RED CELL DISTRIBUTION WIDTH 13.8 % (11.6-16.5); WHITE BLOOD COUNT 5.8 X10^3/uL (3.6-10.0)
[2018-12-14 06:40] LABS: ALANINE AMINOTRANSFERASE 13 Units/L (12-78); ALBUMIN 3.1 g/dL (3.4-5.0); ALKALINE PHOSPHATASE 69 Units/L (46-116); ASPARTATE AMINO TRANSFERASE 19 Units/L (15-37); BLOOD UREA NITROGEN 6 mg/dL (7-18); CALCIUM 9.1 mg/dL (8.5-10.1); CARBON DIOXIDE 24.3 mmol/L (21-32); CHLORIDE 107 mmol/L (98-107); COR CA(FOR HYPOALB) 9.8 mg/dL (8.5-10.1); CREATININE 0.85 mg/dL (0.55-1.02); SODIUM 142 mmol/L (136-145); eGFR NON BLACK RACES > 60 (>60)
--- NOTE | 2018-12-14 10:08 | PCM.PROG ---
Progress Note - Progress Note for Day of Date of Exam: 12/13/18 - Subjective Subjective: WAS ADMITTED FOR WEAKNESS , SHORTNESS OF BREATH, AND AN INFERIOR PUBIC RAMUS FRACTURE FOLLOWING A FALL. TODAY, SHE IS ALERT, LYING IN BED ON MORNING ROUNDS. SHE IS NOTED WITH CONFUSION AT TIMES. ON EXAMINATION, HEART IS REGULAR IN RATE AND RHYTHM. BILATERAL LUNGS ARE NOTED WITH DIMINISHED LUNG SOUNDS THROUGHOUT. ABDOMEN IS ROUND, SOFT, AND NOTED WITH MILD SUPRAPUBIC TENDERNESS. SHE IS NOTED WITH PAIN TO HER PELVIS AREA. SHE REPORTS THAT IT IS PAINFUL TO LIE IN ONE AREA FOR LONG. HER VITLAS THIS MORNING ARE 98.5-78-18-98%NC-167/99. LABS WERE OBTAINED. ABNORMAL LAB VALUES INCLUDE THE FOLLOWING: RBC 3.27, HGB 10.2, HCT 30.9, TOTAL PROTEIN 5.8, ALBUMIN 3.0. SHE HAS BEEN HYPERTENSIVE THROUGHOUT THE NIGHT. TODAY, WE WILL ADD LOSARTAN 50MG PO HS. WE WILL ALSO ADD LOVENOX 30MG SC BID. WE WILL HAVE PHYSICAL THERAPY AMBULATE PATIENT WITH PARTIAL WEIGHT BEARING. OTHERWISE, WE WILL FOLLOW-UP WITH AM LABS AND CONTINUE TO MONITOR. - Past Medical Family Social History Past Med/Fam/Surg Hx: No changes since H&P Allergies: Allergies azithromycin Allergy (Verified 11/08/18 18:08) methylprednisolone Allergy (Verified 11/08/18 18:08) - Review of Systems ROS: No change since H&P - Vital Signs and I&O's Vital Signs: Temperature 97.8 F Pulse Rate [Right Brachial] 75 Pulse Rate 80 Respiratory Rate 18 Blood Pressure [Left Arm] 170/85 Blood Pressure [Right Arm] 180/91 Blood Pressure 243/129 O2 Sat by Pulse Oximetry 95 Intake and Output: Intake & Output 12/11/18 12/12/18 12/13/18 12/14/18 11:59 11:59 11:59 11:59 Intake Total 18790 / 0 2750 / 2750 2500 / 2500 Balance 1879 / 1849 2750 / 2750 2500 / 2500 - Physical Exam Oriented: Person Eyes: Normal Ear: Normal Nose: Normal Throat: Normal Respiratory: Generalized, Diminished Cardiovascular: Normal : Normal Auscultation: Bowel Sounds: Normal Palpation: Normal Tenderness: Normal Skin: Normal Musculoskeletal: Pelvis, Tender Psychiatric: Normal Mood Description: Calm Affect: Normal Speech Pattern: Clear, Appropriate - Laboratory and Diagnostics Result Diagrams: 12/14/18 04:46 12/14/18 04:46 Labs: Laboratory WBC 5.8 X10^3/uL (3.6-10.0) 12/14/18 04:46 RBC 3.06 X10^6/uL (3.5-5.4) L 12/14/18 04:46 Hgb 9.8 g/dL (12.0-16.0) L 12/14/18 04:46 Hct 28.4 % (36.0-47.0) L 12/14/18 04:46 MCV 92.9 fL (80.0-100.0) 12/14/18 04:46 MCH 32.1 pg (27.0-34.0) 12/14/18 04:46 MCHC 34.6 g/dL (33.0-35.0) 12/14/18 04:46 RDW 13.8 % (11.6-16.5) 12/14/18 04:46 Plt Count 186 X10^3/uL (150.0-450.0) 12/14/18 04:46 MPV 7.1 fL (7.4-11.0) L 12/14/18 04:46 Neut % (Auto) 59.8 % (42.0-75.0) 12/14/18 04:46 Lymph % (Auto) 22.1 % (21.0-51.0) 12/14/18 04:46 [place] % (Auto) 11.2 % (0.0-13.0) 12/14/18 04:46 Eos % (Auto) 6.4 % (0.9-2.9) H 12/14/18 04:46 Baso % (Auto) 0.5 % (0.2-1.0) 12/14/18 04:46 Neut # (Auto) 3.5 x10^3/uL (2.2-4.8) 12/14/18 04:46 Lymph # (Auto) 1.3 X10^3/uL (1.3-2.9) 12/14/18 04:46 [place] # (Auto) 0.6 x10^3/uL (0.3-0.8) 12/14/18 04:46 Eos # (Auto) 0.4 x10^3/uL (0.0-0.2) H 12/14/18 04:46 Baso # (Auto) 0.0 X10^3/uL (0.0-0.1) 12/14/18 04:46 Absolute Nucleated RBC 0.1 /100WBC 12/14/18 04:46 D-Dimer 2220 ng/mL (0-400) H* 12/10/18 08:55 Sodium 142 mmol/L (136-145) 12/14/18 04:46 Corrected Sodium TNP 12/14/18 04:46 Potassium 3.6 mmol/L (3.5-5.1) 12/14/18 04:46 Chloride 107 mmol/L (98-107) 12/14/18 04:46 Carbon Dioxide 24.3 mmol/L (21-32) 12/14/18 04:46 BUN 6 mg/dL (7-18) L 12/14/18 04:46 Creatinine 0.85 mg/dL (0.55-1.02) 12/14/18 04:46 Est GFR (MDRD) Af Amer > 60 (>60) 12/14/18 04:46 Est GFR (MDRD) Non-Af > 60 (>60) 12/14/18 04:46 Glucose 95 mg/dL (65-99) 12/14/18 04:46 POC Glucose (mg/dL) 76 mg/dL (65-99) 12/10/18 16:32 Calcium 9.1 mg/dL (8.5-10.1) 12/14/18 04:46 Corrected Calcium 9.8 mg/dL (8.5-10.1) 12/14/18 04:46 Magnesium 2.0 mg/dL (1.7-2.9) 12/14/18 04:46 Total Bilirubin 0.50 mg/dL (0.2-1.0) 12/14/18 04:46 AST 19 Units/L (15-37) 12/14/18 04:46 ALT 13 Units/L (12-78) 12/14/18 04:46 Alkaline Phosphatase 69 Units/L (46-116) 12/14/18 04:46 Creatine Kinase 127 Units/L (26-192) 12/10/18 08:55 CK-MB (CK-2) < 1.0 ng/mL (0-4.0) 12/10/18 08:55 CK/CKMB % Calc 0.8 % (<4) 12/10/18 08:55 Troponin I < 0.02 ng/mL (0-1.5) 12/10/18 08:55 Total Protein 6.0 g/dL (6.4-8.2) L 12/14/18 04:46 Albumin 3.1 g/dL (3.4-5.0) L 12/14/18 04:46 Globulin 2.9 g/dL (2.5-4.5) 12/14/18 04:46 Albumin/Globulin Ratio 1.1 Ratio (1.1-2.1) 12/14/18 04:46 Specimen Type Random urine 12/10/18 13:15 Urine Color Yellow (YELLOW) 12/10/18 13:15 Urine Appearance Clear (CLEAR) 12/10/18 13:15 Urine pH 7.0 (5.0 - 8.0) 12/10/18 13:15 Ur Specific [place] 1.010 (1.000-1.030) 12/10/18 13:15 Urine Protein 2+ (NEGATIVE) 12/10/18 13:15 Urine Glucose (UA) Negative (NEGATIVE) 12/10/18 13:15 Urine Ketones Negative (NEGATIVE) 12/10/18 13:15 Urine Occult Blood 4+ (NEGATIVE) 12/10/18 13:15 Urine Nitrite Negative (NEGATIVE) 12/10/18 13:15 Urine Bilirubin Negative (NEGATIVE) 12/10/18 13:15 Urine Urobilinogen Normal (NORMAL) 12/10/18 13:15 Ur Leukocyte Esterase Negative (NEGATIVE) 12/10/18 13:15 Urine RBC 10-20 /HPF (NONE SEEN) 12/10/18 13:15 Urine WBC 0-2 /HPF (NONE SEEN) 12/10/18 13:15 Ur Squamous Epith Cells Few /HPF (NEGATIVE) 12/10/18 13:15 Calcium Oxalate Crystal Few /HPF (NEGATIVE) 12/10/18 13:15 Urine Bacteria Trace /HPF (NEGATIVE) 12/10/18 13:15 Ur Culture Indicated? No/not indicated 12/10/18 13:15 Influenza Type A (PCR) Negative (NEGATIVE) 12/10/18 09:06 Influenza Type B (PCR) Negative (NEGATIVE) 12/10/18 09:06 - Plan (1) Inferior pubic ramus fracture Status: Acute Qualifiers: Encounter type: initial encounter Fracture type: closed Laterality: right Qualified Code(s): S32.591A - Other specified fracture of right pubis, initial encounter for closed fracture Plan: PT, PAIN CONTROL, CONTINUE TO MONITOR (2) Generalized weakness Status: Acute (3) Hypertension Status: Chronic Qualifiers: Hypertension type: essential hypertension Qualified Code(s): I10 - Essential (primary) hypertension Plan: LOSARTAN 50MG PO HS, METOPROLOL 25MG PO DAILY, CONTINUE TO MONITOR
[2018-12-14] MEDS: NAMENDA TAB 10 MG PO SCH ×2 (10:14→21:17)
[2018-12-14] MEDS: MEGACE PO SCH ×2 (10:15→21:16)
[2018-12-14] MEDS: TOPROL XL PO SCH (10:15)
[2018-12-14] MEDS: COLACE CAP 100 MG PO SCH ×2 (10:15→21:17)
[2018-12-14] MEDS: SYNTHROID 25 mcg TAB PO SCH (10:15)
[2018-12-14] MEDS: OXYBUTYNIN CHLORIDE ER PO SCH (10:15)
[2018-12-14] MEDS: LOVENOX INJ 30 MG SYR SC SCH ×2 (10:16→21:18)
[2018-12-14] MEDS: ARICEPT TAB 10 MG PO SCH (10:16)
[2018-12-14] MEDS: LEVAQUIN PREMIX IV 500 MG 500 MG/100 ML BAG IV SCH (10:21)
[2018-12-14] MEDS: MILK OF MAGNESIA PO SCH ×2 (10:21→21:16)
[2018-12-14] MEDS: ASPIRIN EC 81 MG PO SCH (10:21)
[2018-12-14] MEDS: CYMBALTA PO SCH (10:21)
[2018-12-14 10:46] LABS: BILIRUBIN,URINE NEGATIVE (NEGATIVE); BLOOD/HEMOGLOBIN,URINE 1+ (NEGATIVE); GLUCOSE, URINE NEGATIVE (NEGATIVE); KETONES,URINE NEGATIVE (NEGATIVE); LEUKOCYTE ESTERASE ,URINE NEGATIVE (NEGATIVE); NITRITES,URINE NEGATIVE (NEGATIVE); PROTEIN,URINE NEGATIVE (NEGATIVE); UROBILINOGEN,URINE NORMAL (NORMAL)
[2018-12-14 10:50] LABS: APPEARANCE,URINE CLEAR (CLEAR); BACTERIA,URINE NEGATIVE /HPF (NEGATIVE); COLOR,URINE STRAW (YELLOW); RBC,URINE 0-2 /HPF (NONE SEEN); SQUAMOUS EPITHELIAL CELL,UR NEGATIVE /HPF (NEGATIVE)
[2018-12-14] MEDS: NS 1000 ML 1,000 ML IV SCH ×2 (15:42)
[2018-12-14] MEDS ORDERED: COZAAR PO SCH (21:00)
[2018-12-14] MEDS ORDERED: MIRALAX POWDER (1 DOSE 17 G) PO SCH (21:00)
[2018-12-14] MEDS: ZOCOR TAB 20 MG PO SCH (21:17)
[2018-12-14] MEDS: ZyPREXA TAB 5 MG PO SCH (21:17)
[2018-12-14] MEDS: PERCOCET TAB 5/325 MG PO PRN (21:28)
[2018-12-15] MEDS: NS 1000 ML 1,000 ML IV SCH ×3 (04:35→11:05)
[2018-12-15] MEDS: DUONEB 0.5 MG/3 MG NEB SCH ×2 (05:19→13:52)
[2018-12-15 05:23] LABS: BASOPHILS % (AUTO) 0.7 % (0.2-1.0); EOSINOPHILS # (AUTO) 0.4 x10^3/uL (0.0-0.2); EOSINOPHILS % (AUTO) 7.6 % (0.9-2.9); HEMATOCRIT 25.7 % (36.0-47.0); HEMOGLOBIN 8.8 g/dL (12.0-16.0); LYMPHOCYTES # (AUTO) 1.3 X10^3/uL (1.3-2.9); LYMPHOCYTES % (AUTO) 25.8 % (21.0-51.0); MEAN CORPUSCULAR HGB CONC 34.2 g/dL (33.0-35.0); MEAN CORPUSCULAR VOLUME 93.4 fL (80.0-100.0); MEAN PLATELET VOLUME 6.9 fL (7.4-11.0); MONOCYTES # (AUTO) 0.6 x10^3/uL (0.3-0.8); MONOCYTES % (AUTO) 11.8 % (0.0-13.0); NEUTROPHILS # (AUTO) 2.6 x10^3/uL (2.2-4.8); NEUTROPHILS % (AUTO) 54.1 % (42.0-75.0); PLATELET COUNT 186 X10^3/uL (150.0-450.0); RED BLOOD COUNT 2.75 X10^6/uL (3.5-5.4); RED CELL DISTRIBUTION WIDTH 13.5 % (11.6-16.5); WHITE BLOOD COUNT 4.9 X10^3/uL (3.6-10.0)
[2018-12-15 05:27] LABS: ALANINE AMINOTRANSFERASE 10 Units/L (12-78); ALBUMIN 2.6 g/dL (3.4-5.0); ALKALINE PHOSPHATASE 61 Units/L (46-116); ASPARTATE AMINO TRANSFERASE 15 Units/L (15-37); BLOOD UREA NITROGEN 8 mg/dL (7-18); CALCIUM 8.4 mg/dL (8.5-10.1); CARBON DIOXIDE 25.3 mmol/L (21-32); CHLORIDE 108 mmol/L (98-107); COR CA(FOR HYPOALB) 9.5 mg/dL (8.5-10.1); CREATININE 0.99 mg/dL (0.55-1.02); SODIUM 141 mmol/L (136-145); TOTAL PROTEIN 5.1 g/dL (6.4-8.2); eGFR NON BLACK RACES 57 (>60)
[2018-12-15] MEDS: MILK OF MAGNESIA PO SCH ×3 (07:08→13:09)
[2018-12-15] MEDS: SYNTHROID 25 mcg TAB PO SCH (08:47)
[2018-12-15] MEDS: LEVAQUIN PREMIX IV 500 MG 500 MG/100 ML BAG IV SCH (08:48)
--- NOTE | 2018-12-15 09:32 | PCM.PROG ---
Progress Note - Progress Note for Day of Date of Exam: 12/14/18 - Subjective Subjective: WAS ADMITTED FOR WEAKNESS , SHORTNESS OF BREATH, AND AN INFERIOR PUBIC RAMUS FRACTURE FOLLOWING A FALL. TODAY, SHE IS ALERT, LYING IN BED ON MORNING ROUNDS. SHE IS NOTED WITH CONFUSION AT TIMES. FAMILY REPORTS THAT SHE WAS RESTLESS THROUGHOUT THE NIGHT. SHE HAS BEEN HYPERTENSIVE THROUGHOUT THE NIGHT. ON EXAMINATION, HEART IS REGULAR IN RATE AND RHYTHM. BILATERAL LUNGS ARE NOTED WITH DIMINISHED LUNG SOUNDS THROUGHOUT. ABDOMEN IS ROUND, SOFT, AND NOTED WITH MILD SUPRAPUBIC TENDERNESS. SHE IS NOTED WITH PAIN TO HER PELVIS AREA.. HER VITLAS THIS MORNING ARE 98.0-79-18-95%-165/97. LABS WERE OBTAINED. ABNORMAL LAB VALUES INCLUDE THE FOLLOWING: RBC 3.06, HGB 9.8, HCT 28.4, BUN 6, TOTAL PROTEIN 6.0, ALBUMIN 3.1. PHYSICAL THERAPY IS AMBULATE PATIENT WITH PARTIAL WEIGHT BEARING. TODAY, WE WILL START LEVAQUIN 500MG IV DAILY FOR PROPHYLAXIS. WE WILL ALSO DISCONTINUE THE MORPHINE AND START PERCOCET 5/325 1 TABLET DAILY AND LOSARTAN 100MG PO HS. OTHERWISE, WE WILL FOLLOW-UP WITH AM LABS AND CONTINUE TO MONITOR. - Past Medical Family Social History Past Med/Fam/Surg Hx: No changes since H&P Allergies: Allergies azithromycin Allergy (Verified 11/08/18 18:08) methylprednisolone Allergy (Verified 11/08/18 18:08) morphine Allergy (Verified 12/14/18 17:03) - Review of Systems ROS: No change since H&P - Vital Signs and I&O's Vital Signs: Temperature 98.4 F Pulse Rate [Left Brachial] 73 Pulse Rate [Right Brachial] 83 Pulse Rate 78 Respiratory Rate 20 Blood Pressure [Left Arm] 104/73 Blood Pressure [Right Arm] 173/95 Blood Pressure 243/129 O2 Sat by Pulse Oximetry 94 Intake and Output: Intake & Output 12/12/18 12/13/18 12/14/18 12/15/18 11:59 11:59 11:59 11:59 Intake Total 1849 / 0 2750 / 2750 2500 / 2500 1939 Balance 18490 2750 / 2750 2500 / 2500 1939 - Physical Exam Oriented: Person Eyes: Normal Ear: Normal Nose: Normal Throat: Normal Respiratory: Generalized, Diminished Cardiovascular: Normal : Normal Auscultation: Bowel Sounds: Normal Palpation: Normal Tenderness: Normal Skin: Normal Musculoskeletal: Pelvis, Tender Psychiatric: Normal Mood Description: Calm Affect: Normal Speech Pattern: Clear, Appropriate - Laboratory and Diagnostics Result Diagrams: 12/15/18 04:34 12/15/18 04:34 Labs: Laboratory WBC 4.9 X10^3/uL (3.6-10.0) 12/15/18 04:34 RBC 2.75 X10^6/uL (3.5-5.4) L 12/15/18 04:34 Hgb 8.8 g/dL (12.0-16.0) L 12/15/18 04:34 Hct 25.7 % (36.0-47.0) L 12/15/18 04:34 MCV 93.4 fL (80.0-100.0) 12/15/18 04:34 MCH 32.0 pg (27.0-34.0) 12/15/18 04:34 MCHC 34.2 g/dL (33.0-35.0) 12/15/18 04:34 RDW 13.5 % (11.6-16.5) 12/15/18 04:34 Plt Count 186 X10^3/uL (150.0-450.0) 12/15/18 04:34 MPV 6.9 fL (7.4-11.0) L 12/15/18 04:34 Neut % (Auto) 54.1 % (42.0-75.0) 12/15/18 04:34 Lymph % (Auto) 25.8 % (21.0-51.0) 12/15/18 04:34 [place] % (Auto) 11.8 % (0.0-13.0) 12/15/18 04:34 Eos % (Auto) 7.6 % (0.9-2.9) H 12/15/18 04:34 Baso % (Auto) 0.7 % (0.2-1.0) 12/15/18 04:34 Neut # (Auto) 2.6 x10^3/uL (2.2-4.8) 12/15/18 04:34 Lymph # (Auto) 1.3 X10^3/uL (1.3-2.9) 12/15/18 04:34 [place] # (Auto) 0.6 x10^3/uL (0.3-0.8) 12/15/18 04:34 Eos # (Auto) 0.4 x10^3/uL (0.0-0.2) H 12/15/18 04:34 Baso # (Auto) 0.0 X10^3/uL (0.0-0.1) 12/15/18 04:34 Absolute Nucleated RBC 0.0 /100WBC 12/15/18 04:34 D-Dimer 2220 ng/mL (0-400) H* 12/10/18 08:55 Sodium 141 mmol/L (136-145) 12/15/18 04:34 Corrected Sodium TNP 12/15/18 04:34 Potassium 4.2 mmol/L (3.5-5.1) 12/15/18 04:34 Chloride 108 mmol/L (98-107) H 12/15/18 04:34 Carbon Dioxide 25.3 mmol/L (21-32) 12/15/18 04:34 BUN 8 mg/dL (7-18) 12/15/18 04:34 Creatinine 0.99 mg/dL (0.55-1.02) 12/15/18 04:34 Est GFR (MDRD) Af Amer > 60 (>60) 12/15/18 04:34 Est GFR (MDRD) Non-Af 57 (>60) L 12/15/18 04:34 Glucose 85 mg/dL (65-99) 12/15/18 04:34 POC Glucose (mg/dL) 76 mg/dL (65-99) 12/10/18 16:32 Calcium 8.4 mg/dL (8.5-10.1) L 12/15/18 04:34 Corrected Calcium 9.5 mg/dL (8.5-10.1) 12/15/18 04:34 Magnesium 2.0 mg/dL (1.7-2.9) 12/14/18 04:46 Total Bilirubin 0.30 mg/dL (0.2-1.0) 12/15/18 04:34 AST 15 Units/L (15-37) 12/15/18 04:34 ALT 10 Units/L (12-78) L 12/15/18 04:34 Alkaline Phosphatase 61 Units/L (46-116) 12/15/18 04:34 Creatine Kinase 127 Units/L (26-192) 12/10/18 08:55 CK-MB (CK-2) < 1.0 ng/mL (0-4.0) 12/10/18 08:55 CK/CKMB % Calc 0.8 % (<4) 12/10/18 08:55 Troponin I < 0.02 ng/mL (0-1.5) 12/10/18 08:55 Total Protein 5.1 g/dL (6.4-8.2) L 12/15/18 04:34 Albumin 2.6 g/dL (3.4-5.0) L 12/15/18 04:34 Globulin 2.5 g/dL (2.5-4.5) 12/15/18 04:34 Albumin/Globulin Ratio 1.0 Ratio (1.1-2.1) L 12/15/18 04:34 Specimen Type Clean catch urine 12/14/18 10:33 Urine Color Straw (YELLOW) 12/14/18 10:33 Urine Appearance Clear (CLEAR) 12/14/18 10:33 Urine pH 8.0 (5.0 - 8.0) 12/14/18 10:33 Ur Specific [place] 1.010 (1.000-1.030) 12/14/18 10:33 Urine Protein Negative (NEGATIVE) 12/14/18 10:33 Urine Glucose (UA) Negative (NEGATIVE) 12/14/18 10:33 Urine Ketones Negative (NEGATIVE) 12/14/18 10:33 Urine Occult Blood 1+ (NEGATIVE) 12/14/18 10:33 Urine Nitrite Negative (NEGATIVE) 12/14/18 10:33 Urine Bilirubin Negative (NEGATIVE) 12/14/18 10:33 Urine Urobilinogen Normal (NORMAL) 12/14/18 10:33 Ur Leukocyte Esterase Negative (NEGATIVE) 12/14/18 10:33 Urine RBC 0-2 /HPF (NONE SEEN) 12/14/18 10:33 Urine WBC None seen /HPF (NONE SEEN) 12/14/18 10:33 Ur Squamous Epith Cells Negative /HPF (NEGATIVE) 12/14/18 10:33 Calcium Oxalate Crystal Few /HPF (NEGATIVE) 12/10/18 13:15 Urine Bacteria Negative /HPF (NEGATIVE) 12/14/18 10:33 Ur Culture Indicated? No/not indicated 12/14/18 10:33 Influenza Type A (PCR) Negative (NEGATIVE) 12/10/18 09:06 Influenza Type B (PCR) Negative (NEGATIVE) 12/10/18 09:06 - Plan (1) Inferior pubic ramus fracture Status: Acute Qualifiers: Encounter type: initial encounter Fracture type: closed Laterality: right Qualified Code(s): S32.591A - Other specified fracture of right pubis, initial encounter for closed fracture Plan: PT, PAIN CONTROL, CONTINUE TO MONITOR (2) Generalized weakness Status: Acute (3) Hypertension Status: Chronic Qualifiers: Hypertension type: essential hypertension Qualified Code(s): I10 - Essential (primary) hypertension Plan: LOSARTAN 100MG PO HS, METOPROLOL 25MG PO DAILY, CONTINUE TO MONITOR
[2018-12-15] MEDS: LOVENOX INJ 30 MG SYR SC SCH (09:45)
[2018-12-15] MEDS: OXYBUTYNIN CHLORIDE ER PO SCH (09:46)
[2018-12-15] MEDS: COLACE CAP 100 MG PO SCH (09:46)
[2018-12-15] MEDS: NAMENDA TAB 10 MG PO SCH (09:46)
[2018-12-15] MEDS: MEGACE PO SCH (09:46)
[2018-12-15] MEDS: CYMBALTA PO SCH (09:46)
[2018-12-15] MEDS: TOPROL XL PO SCH (09:47)
[2018-12-15] MEDS: ARICEPT TAB 10 MG PO SCH (09:47)
[2018-12-15] MEDS: ASPIRIN EC 81 MG PO SCH (09:47)
[2018-12-15] MEDS: PERCOCET TAB 5/325 MG PO PRN (10:25)
--- NOTE | 2018-12-15 11:39 | RAD ---
History: Cough Study: AP chest Comparison: CT chest dated December 10 Findings: The heart size is normal. There is a right subclavian Port-A-Cath. There are increased interstitial lung markings. Overall the lungs are hyper inflated. There is no vascular congestion or pulmonary edema or pleural effusion. There are erosive changes of the left humeral head. Overall the lungs are hyperinflated. Impression: Apparent COPD, no definite acute disease. Reported By:
[2018-12-15 16:15] VITALS: BP 145/67
--- NOTE | 2018-12-17 09:06 | DR.EXTPAIN ---
HPI Time seen Time Seen by Provider: 12/10/18 08:33 PCP Primary Care Physician: Mark Complaint/Symptoms Chief Complaint Doctor Comments: Patient presents with family members with complaint of falling for two days. She admits to previous hip hurting (L) and now back and right hip pain. Pain level indeterminent. Chief Complaint:: FAMILY STATED THAT PATIENT FELL TIMES 2 DAYS AND IS C/O OF HIP AND LEGS HURTING. STATED THAT HE BELIEVES HER LEGS JUST GAVE OUT ON HER THAT HE HAD WALKED OUT OF THE ROOM AND CAME BACK AND SHE WAS LYING ON THE FLOOR. Source History Provided: Patient and EMS Mode of arrival Mode of Arrival: EMS Timing Onset of Chief Complaint: 12/08/18 PMH PMH Past Medical History: COPD Past Surgical History: Yes Surgical History: Cholecystectomy and Hysterectomy Family History History of Family Medical Conditions: Yes Family Medical History: Diabetes Mellitus, [place], Coronary Artery Disease and Hypertension Social History Does patient currently use any type of tobacco product: No Have you used tobacco products in the last 12 months: No Type of Tobacco Use: None Does any household member use tobacco: No Alcohol Use: None Do you use any recreational Drugs:: No Lives With: Family Lives Where: Home infectious screening In the last 2 months have you had wt loss of >10#?: NO Have you had fever, night sweats or hemotysis?: No Have you traveled outside the country in the last 6 months?: No Isolation: Standard ROS Review of Systems Constitutional: Weakness Respiratoy: No Symptoms Reported Cardiovascular: No Symptoms Reported Gastrointestinal/Abdominal: No Symptoms Reported Neurological: Weakness and Problems Walking Musculoskeletal: Joint Pain (left hip) Integumentary: No Symptoms Reported Psychiatric: No Symptoms Reported All Other Systems: Reviewed and Negative PE Vital Signs Vitals: Temperature 97.8 F Pulse Rate [Left Brachial] 97 Pulse Rate [Right Brachial] 83 Pulse Rate 75 Respiratory Rate 18 Blood Pressure [Left Arm] 145/67 Blood Pressure [Right Arm] 173/95 Blood Pressure 243/129 O2 Sat by Pulse Oximetry 92 General Limitations: Physical Limitation General Appearance: Alert Head Head Exam: Normal Inspection and Atraumatic Eyes Eye exam: Normal Appearance, PERRL and EOMI ENT ENT Exam: Normal Exam, Normal Oropharynx, Normal External Ear Exam, Mucous Membranes Moist and TM's Normal Bilaterally Neck Neck Exam: Normal Inspection Chest Chest Inspection: Normal Inspection and Symmetric Chest Wall Rise Respiratory Respiratory Exam: Normal Lung Sounds Bilat; negative Accessory Muscle Use, Chest Wall Tenderness and Prolonged Expiratory Phase Respiratory Exam: Bilateral: Clear to Auscultation Cardiovascular Cardiovascular Exam: Regular Rate and Normal Rhythm Abdominal Exam Abdominal Exam: Normal Inspection, Normal Bowel Sounds and Soft Extremities Extremities Exam: Normal Inspection and Tenderness (left hip) Upper Extremities Shoulder Exam: Normal Inspection Arm Exam: Normal Inspection Hand Exam: Normal Inspection Lower Extremities Hip/Pelvis Exam: Tenderness (?tenderness to movement left hip) Knee Exam: Normal Inspection Lower Leg Exam: Normal Inspection Ankle Exam: Normal Inspection Back Back Exam: Other; negative Paraspinal Tenderness Neurological Neurological Exam: Alert and CN II-XII Intact Psychiatric Psychiatric Exam: Flat Affect Skin Skin Exam: Warm, Dry and Intact MDM Differential Diagnosis Differential Diagnosis: Contusion, Fracture, Sprain and Other (DJD) COURSE Reevaluation 1st: Unchanged ROR Labs Reviewed Laboratory Results Reviewed?: Yes Result Diagrams: 12/15/18 04:34 12/15/18 04:34 Laboratory: 12/15/18 10:03 Blood Blood Culture - Preliminary 12/15/18 09:58 Blood Blood Culture - Preliminary WBC 4.9 X10^3/uL (3.6-10.0) 12/15/18 04:34 RBC 2.75 X10^6/uL (3.5-5.4) L 12/15/18 04:34 Hgb 8.8 g/dL (12.0-16.0) L 12/15/18 04:34 Hct 25.7 % (36.0-47.0) L 12/15/18 04:34 MCV 93.4 fL (80.0-100.0) 12/15/18 04:34 MCH 32.0 pg (27.0-34.0) 12/15/18 04:34 MCHC 34.2 g/dL (33.0-35.0) 12/15/18 04:34 RDW 13.5 % (11.6-16.5) 12/15/18 04:34 Plt Count 186 X10^3/uL (150.0-450.0) 12/15/18 04:34 MPV 6.9 fL (7.4-11.0) L 12/15/18 04:34 Neut % (Auto) 54.1 % (42.0-75.0) 12/15/18 04:34 Lymph % (Auto) 25.8 % (21.0-51.0) 12/15/18 04:34 [place] % (Auto) 11.8 % (0.0-13.0) 12/15/18 04:34 Eos % (Auto) 7.6 % (0.9-2.9) H 12/15/18 04:34 Baso % (Auto) 0.7 % (0.2-1.0) 12/15/18 04:34 Neut # (Auto) 2.6 x10^3/uL (2.2-4.8) 12/15/18 04:34 Lymph # (Auto) 1.3 X10^3/uL (1.3-2.9) 12/15/18 04:34 [place] # (Auto) 0.6 x10^3/uL (0.3-0.8) 12/15/18 04:34 Eos # (Auto) 0.4 x10^3/uL (0.0-0.2) H 12/15/18 04:34 Baso # (Auto) 0.0 X10^3/uL (0.0-0.1) 12/15/18 04:34 Absolute Nucleated RBC 0.0 /100WBC 12/15/18 04:34 D-Dimer 2220 ng/mL (0-400) H* 12/10/18 08:55 Sodium 141 mmol/L (136-145) 12/15/18 04:34 Corrected Sodium TNP 12/15/18 04:34 Potassium 4.2 mmol/L (3.5-5.1) 12/15/18 04:34 Chloride 108 mmol/L (98-107) H 12/15/18 04:34 Carbon Dioxide 25.3 mmol/L (21-32) 12/15/18 04:34 BUN 8 mg/dL (7-18) 12/15/18 04:34 Creatinine 0.99 mg/dL (0.55-1.02) 12/15/18 04:34 Est GFR (MDRD) Af Amer > 60 (>60) 12/15/18 04:34 Est GFR (MDRD) Non-Af 57 (>60) L 12/15/18 04:34 Glucose 85 mg/dL (65-99) 12/15/18 04:34 POC Glucose (mg/dL) 76 mg/dL (65-99) 12/10/18 16:32 Calcium 8.4 mg/dL (8.5-10.1) L 12/15/18 04:34 Corrected Calcium 9.5 mg/dL (8.5-10.1) 12/15/18 04:34 Magnesium 2.0 mg/dL (1.7-2.9) 12/14/18 04:46 Total Bilirubin 0.30 mg/dL (0.2-1.0) 12/15/18 04:34 AST 15 Units/L (15-37) 12/15/18 04:34 ALT 10 Units/L (12-78) L 12/15/18 04:34 Alkaline Phosphatase 61 Units/L (46-116) 12/15/18 04:34 Creatine Kinase 127 Units/L (26-192) 12/10/18 08:55 CK-MB (CK-2) < 1.0 ng/mL (0-4.0) 12/10/18 08:55 CK/CKMB % Calc 0.8 % (<4) 12/10/18 08:55 Troponin I < 0.02 ng/mL (0-1.5) 12/10/18 08:55 Total Protein 5.1 g/dL (6.4-8.2) L 12/15/18 04:34 Albumin 2.6 g/dL (3.4-5.0) L 12/15/18 04:34 Globulin 2.5 g/dL (2.5-4.5) 12/15/18 04:34 Albumin/Globulin Ratio 1.0 Ratio (1.1-2.1) L 12/15/18 04:34 Specimen Type Clean catch urine 12/14/18 10:33 Urine Color Straw (YELLOW) 12/14/18 10:33 Urine Appearance Clear (CLEAR) 12/14/18 10:33 Urine pH 8.0 (5.0 - 8.0) 12/14/18 10:33 Ur Specific [place] 1.010 (1.000-1.030) 12/14/18 10:33 Urine Protein Negative (NEGATIVE) 12/14/18 10:33 Urine Glucose (UA) Negative (NEGATIVE) 12/14/18 10:33 Urine Ketones Negative (NEGATIVE) 12/14/18 10:33 Urine Occult Blood 1+ (NEGATIVE) 12/14/18 10:33 Urine Nitrite Negative (NEGATIVE) 12/14/18 10:33 Urine Bilirubin Negative (NEGATIVE) 12/14/18 10:33 Urine Urobilinogen Normal (NORMAL) 12/14/18 10:33 Ur Leukocyte Esterase Negative (NEGATIVE) 12/14/18 10:33 Urine RBC 0-2 /HPF (NONE SEEN) 12/14/18 10:33 Urine WBC None seen /HPF (NONE SEEN) 12/14/18 10:33 Ur Squamous Epith Cells Negative /HPF (NEGATIVE) 12/14/18 10:33 Calcium Oxalate Crystal Few /HPF (NEGATIVE) 12/10/18 13:15 Urine Bacteria Negative /HPF (NEGATIVE) 12/14/18 10:33 Ur Culture Indicated? No/not indicated 12/14/18 10:33 Influenza Type A (PCR) Negative (NEGATIVE) 12/10/18 09:06 Influenza Type B (PCR) Negative (NEGATIVE) 12/10/18 09:06
== END 2018-12-15 16:18 | DRG 536 ==
LOC: ER 08:28 → MED/SURG 15:23
PROVIDERS: ADMIT Obstetrics & Gynecology Obstetrics; ATTEND Internal Medicine
DX: J44.9 Chronic obstructive pulmonary disease, unspecified; W18.39XA Other fall on same level, initial encounter; Z91.81 History of falling; G30.8 Other Alzheimer's disease; S32.592A Other specified fracture of left pubis, initial encounter for closed fracture; R53.1 Weakness; N18.9 Chronic kidney disease, unspecified; R41.82 Altered mental status, unspecified; E78.2 Mixed hyperlipidemia; M85.80 Other specified disorders of bone density and structure, unspecified site; M25.552 Pain in left hip; R06.02 Shortness of breath; I12.9 Hypertensive chronic kidney disease with stage 1 through stage 4 chronic kidney disease, or unspecified chronic kidney disease; I25.10 Atherosclerotic heart disease of native coronary artery without angina pectoris; K21.9 Gastro-esophageal reflux disease without esophagitis; K44.9 Diaphragmatic hernia without obstruction or gangrene
CPT/HCPCS: 36415; 71010; 71045; 71275; 73521; 80053; 81001; 82550; 82553; 83735; 84484; 85025; 85378; 87040; 87502; 93005; 94640; 94760; 96365; 96374; 96375; 97110; 97162; 97166; 97530; 97535; 99284; A4216; A4222; S0179; J1642; J1650; J1956; J2270; J3475; J7030; J7620

== ENCOUNTER 2018-12-23 19:00 | Inpatient (IN) ==
[2018-12-23] MEDS: NS 1000 ML 1,000 ML IV SCH (19:55)
[2018-12-23 20:04] LABS: BASOPHILS # (AUTO) 0.1 X10^3/uL (0.0-0.1); BASOPHILS % (AUTO) 0.9 % (0.2-1.0); EOSINOPHILS # (AUTO) 0.2 x10^3/uL (0.0-0.2); EOSINOPHILS % (AUTO) 2.5 % (0.9-2.9); HEMATOCRIT 29.2 % (36.0-47.0); HEMOGLOBIN 9.9 g/dL (12.0-16.0); LYMPHOCYTES # (AUTO) 1.7 X10^3/uL (1.3-2.9); LYMPHOCYTES % (AUTO) 24.9 % (21.0-51.0); MEAN CORPUSCULAR HEMOGLOBIN 31.7 pg (27.0-34.0); MEAN CORPUSCULAR HGB CONC 33.9 g/dL (33.0-35.0); MEAN CORPUSCULAR VOLUME 93.5 fL (80.0-100.0); MEAN PLATELET VOLUME 6.6 fL (7.4-11.0); MONOCYTES # (AUTO) 0.8 x10^3/uL (0.3-0.8); MONOCYTES % (AUTO) 11.4 % (0.0-13.0); NEUTROPHILS # (AUTO) 4.2 x10^3/uL (2.2-4.8); NEUTROPHILS % (AUTO) 60.3 % (42.0-75.0); PLATELET COUNT 339 X10^3/uL (150.0-450.0); RED BLOOD COUNT 3.12 X10^6/uL (3.5-5.4); RED CELL DISTRIBUTION WIDTH 13.9 % (11.6-16.5)
[2018-12-23 20:15] LABS: ALBUMIN 3.1 g/dL (3.4-5.0); CARBON DIOXIDE 26.6 mmol/L (21-32); COR CA(FOR HYPOALB) 9.7 mg/dL (8.5-10.1); CREATININE 1.38 mg/dL (0.55-1.02); TOTAL PROTEIN 5.9 g/dL (6.4-8.2)
--- NOTE | 2018-12-23 20:21 | CT ---
CT HEAD WITHOUT CONTRAST CLINICAL HISTORY: 83-year-old female with altered mental status. COMPARISON: CT head 12/07/2015. TECHNIQUE: Multiple, non-contrasted axial CT images were obtained from the skull base to the cranial vertex. Coronal and sagittal reformats were performed.Dose reduction techniques including Automated Exposure Control (AEC) and adjustment of mA and kV were utilized. FINDINGS: There are no abnormal intra- or extra-axial fluid collections, midline shift, or mass effect. Gibson-white differentiation is normal. Global cortical involutional changes are present that are advanced for the patient's stated age. The ventricular system is enlarged but commensurate with the degree of sulcal prominence. Chronic lacunar infarctions bilateral basal ganglia. Severe periventricular and supraventricular white matter hypodensity is present that is nonspecific in appearance, but most likely to represent microvascular ischemic changes. Atherosclerotic vascular calcification is present within the carotid siphons and distal vertebral arteries. The imaged paranasal sinuses, mastoid air cells, and tympanic spaces are clear. IMPRESSION: 1. No definite evidence of an acute intracranial process. If clinical concern persists for acute stroke and it would alter patient management, consider MRI/MRA brain. 2. Chronic lacunar infarctions bilateral basal ganglia. 3. Severe microvascular white matter ischemic changes, with associated volume loss. Reported By:
--- NOTE | 2018-12-23 20:21 | RAD ---
Chest AP portable Indication: Hypotension. Weight loss and history of hip fracture. Comparison: 12/15/2018 Findings: There is no pneumothorax. There is cardiomegaly and large hiatal hernia. Port-A-Cath tip is over the SVC. Hyperinflation of COPD noted. Old left proximal humerus fracture noted Impression: Cardiomegaly and COPD change with minimal increased interstitial markings and vague patchy left upper lung opacity. Early changes of CHF versus developing left upper lung pneumonia. Follow-up to resolution. Reported By:
[2018-12-23] MEDS ORDERED: PERCOCET TAB 5/325 MG PO ONE (21:23)
[2018-12-23] MEDS ORDERED: PERCOCET TAB 5/325 MG ONE (21:24)
--- NOTE | 2018-12-23 22:12 | DR.GENAD ---
HPI Time Seen Time Seen by Provider: 12/23/18 19:25 PCP Primary Care Physician: DR. CHRISTINA Complaint/Symptoms Chief Complaint Doctors Comments: Multiple complaints of not eating, decreased blood pressure, general appearance not good. [facility] patient. Patient is alert in no distress, responds appropriately. Chief Complaint:: DAUGHTER STATES THAT HER BLOOD PRESSURE KEEPS BOTTOMING OUT. STATES MOM LOOKS PALE AND HASN'T BEEN EATING. STATES SHE COULD ONLY GET HER TO EAT 3 BITES TODAY AND DRINK A QUARTER OF AN ENSURE. STATES SHE WENT FROM 120LBS TO 105LBS IN A WEEK. STATES SHE HAS A FRACTURED HIP AND GOT UP AND WALKED INTO ANOTHER PATIENT'S ROOM LAST NIGHT AT [facility]ISON AND FELL. STATES SHE ISN'T ACTING NORMAL. STATES SHE IS COMPLAINING MORE PAIN IN HER HIP THAN NORMAL. Source History Provided: Family Member and [facility] Mode of Arrival Mode of Arrival: Stretcher Timing Onset of Chief Complaint: 12/23/18 PMH PMH Past Medical History: Yes Past Medical History: Alzheimers, Anxiety, Arthritis, COPD, Coronary Artery Disease, Dementia, Depression, Dyslipidemia, GERD and Hypertension Past Surgical History: Yes Surgical History: Cholecystectomy and Hysterectomy Family History History of Family Medical Conditions: Yes Family Medical History: Diabetes Mellitus, [place], Coronary Artery Disease and Hypertension Social History Do you use any recreational Drugs:: No Lives With: Other Lives Where: [facility] infectious screening In the last 2 months have you had wt loss of >10#?: NO Have you had fever, night sweats or hemotysis?: No Have you traveled outside the country in the last 6 months?: No Isolation: Standard ROS Review of Systems Constitutional: No Symptoms Reported Eyes: No Symptoms Reported ENTM: No Symptoms Reported Respiratoy: No Symptoms Reported Cardiovascular: No Symptoms Reported Gastrointestinal/Abdominal: No Symptoms Reported Neurological: No Symptoms Reported Musculoskeletal: No Symptoms Reported Integumentary: No Symptoms Reported Endocrine: No Symptoms Reported Psychiatric: No Symptoms Reported All Other Systems: Reviewed and Negative PE Vital Signs Vitals: Temperature 98.0 F Pulse Rate [Left Brachial] 76 Pulse Rate 74 Respiratory Rate 18 Blood Pressure [Left Arm] 137/86 Blood Pressure [Right Arm] 173/95 Blood Pressure 132/86 O2 Sat by Pulse Oximetry 97 General Limitations: No Limitations and Other General Appearance: Alert and In No Apparent Distress Head Head Exam: Normal Inspection, Atraumatic and Normocephalic Eyes Eye exam: Normal Appearance, PERRL and EOMI ENT ENT Exam: Normal Exam and Normal Oropharynx External Ear Exam: Normal External Inspection TM/Canal Exam: Bilateral: Normal Nose Exam: Normal Nose Exam Mouth Exam: Normal Inspection Throat Exam: Normal Inspection Neck Neck Exam: Normal Inspection Chest Chest Inspection: Normal Inspection and Symmetric Chest Wall Rise Respiratory Respiratory Exam: Normal Lung Sounds Bilat Respiratory Exam: Bilateral: Clear to Auscultation Cardiovascular Cardiovascular Exam: Regular Rate and Normal Rhythm Abdominal Exam Abdominal Exam: Normal Inspection, Normal Bowel Sounds and Soft Extremities Extremities Exam: Normal Inspection and Full ROM Back Back Exam: Normal Inspection and Full ROM Neurologic Neurological Exam: Alert, Oriented X3 and CN II-XII Intact Psychiatric Psychiatric Exam: Normal Affect and Normal Mood Skin Skin Exam: Warm, Dry and Intact MDM Differential Diagnosis Differential Diagnosis: dementia,normal sensorium,cva COURSE Reevaluation 1st: Unchanged Consultation Called: 23:45 Consultation Comments: Charge nurse authorized admission ROR Labs Reviewed Laboratory Results Reviewed?: Yes Result Diagrams: 12/23/18 19:55 12/23/18 19:55 Laboratory: WBC 7.0 X10^3/uL (3.6-10.0) 12/23/18 19:55 RBC 3.12 X10^6/uL (3.5-5.4) L 12/23/18 19:55 Hgb 9.9 g/dL (12.0-16.0) L 12/23/18 19:55 Hct 29.2 % (36.0-47.0) L 12/23/18 19:55 MCV 93.5 fL (80.0-100.0) 12/23/18 19:55 MCH 31.7 pg (27.0-34.0) 12/23/18 19:55 MCHC 33.9 g/dL (33.0-35.0) 12/23/18 19:55 RDW 13.9 % (11.6-16.5) 12/23/18 19:55 Plt Count 339 X10^3/uL (150.0-450.0) 12/23/18 19:55 MPV 6.6 fL (7.4-11.0) L 12/23/18 19:55 Neut % (Auto) 60.3 % (42.0-75.0) 12/23/18 19:55 Lymph % (Auto) 24.9 % (21.0-51.0) 12/23/18 19:55 Cloud % (Auto) 11.4 % (0.0-13.0) 12/23/18 19:55 Eos % (Auto) 2.5 % (0.9-2.9) 12/23/18 19:55 Baso % (Auto) 0.9 % (0.2-1.0) 12/23/18 19:55 Neut # (Auto) 4.2 x10^3/uL (2.2-4.8) 12/23/18 19:55 Lymph # (Auto) 1.7 X10^3/uL (1.3-2.9) 12/23/18 19:55 Cloud # (Auto) 0.8 x10^3/uL (0.3-0.8) 12/23/18 19:55 Eos # (Auto) 0.2 x10^3/uL (0.0-0.2) 12/23/18 19:55 Baso # (Auto) 0.1 X10^3/uL (0.0-0.1) 12/23/18 19:55 Absolute Nucleated RBC 0.0 /100WBC 12/23/18 19:55 Sodium 143 mmol/L (136-145) 12/23/18 19:55 Corrected Sodium 143 mmol/L (136-145) 12/23/18 19:55 Potassium 3.5 mmol/L (3.5-5.1) 12/23/18 19:55 Chloride 106 mmol/L (98-107) 12/23/18 19:55 Carbon Dioxide 26.6 mmol/L (21-32) 12/23/18 19:55 BUN 19 mg/dL (7-18) H 12/23/18 19:55 Creatinine 1.38 mg/dL (0.55-1.02) H 12/23/18 19:55 Est GFR (MDRD) Af Amer 47 (>60) L 12/23/18 19:55 Est GFR (MDRD) Non-Af 39 (>60) L 12/23/18 19:55 Glucose 117 mg/dL (65-99) H 12/23/18 19:55 Calcium 9.0 mg/dL (8.5-10.1) 12/23/18 19:55 Corrected Calcium 9.7 mg/dL (8.5-10.1) 12/23/18 19:55 Total Bilirubin 0.30 mg/dL (0.2-1.0) 12/23/18 19:55 AST 17 Units/L (15-37) 12/23/18 19:55 ALT 14 Units/L (12-78) 12/23/18 19:55 Alkaline Phosphatase 182 Units/L (46-116) H 12/23/18 19:55 Total Protein 5.9 g/dL (6.4-8.2) L 12/23/18 19:55 Albumin 3.1 g/dL (3.4-5.0) L 12/23/18 19:55 Globulin 2.8 g/dL (2.5-4.5) 12/23/18 19:55 Albumin/Globulin Ratio 1.1 Ratio (1.1-2.1) 12/23/18 19:55 Specimen Type Catherized urine 12/24/18 00:44 Urine Color Yellow (YELLOW) 12/24/18 00:44 Urine Appearance Clear (CLEAR) 12/24/18 00:44 Urine pH 6.0 (5.0 - 8.0) 12/24/18 00:44 Ur Specific [place] 1.020 (1.000-1.030) 12/24/18 00:44 Urine Protein 2+ (NEGATIVE) 12/24/18 00:44 Urine Glucose (UA) Negative (NEGATIVE) 12/24/18 00:44 Urine Ketones 2+ (NEGATIVE) 12/24/18 00:44 Urine Occult Blood 4+ (NEGATIVE) 12/24/18 00:44 Urine Nitrite Negative (NEGATIVE) 12/24/18 00:44 Urine Bilirubin Negative (NEGATIVE) 12/24/18 00:44 Urine Urobilinogen Normal (NORMAL) 12/24/18 00:44 Ur Leukocyte Esterase 1+ (NEGATIVE) 12/24/18 00:44 Urine RBC 5-10 /HPF (NONE SEEN) 12/24/18 00:44 Urine WBC 0-2 /HPF (NONE SEEN) 12/24/18 00:44 Ur Squamous Epith Cells Rare /HPF (NEGATIVE) 12/24/18 00:44 Urine Bacteria Negative /HPF (NEGATIVE) 12/24/18 00:44 Ur Culture Indicated? No/not indicated 12/24/18 00:44 Other Results Comments: Chest AP:There is no pneumothorax. There is cardiomegaly and large hiatal hernia. Port-A-Cath tip is over the SVC. Hyperinflation of COPD noted. Old left proximal humerus fracture noted. Impression: Cardoimegaly and COPD change with minimal increased interstitial markings and vague patchy left upper lung opacity. Early changes of CHF vs developing left upper lung pneumonia. Follow up to resolution. CT Brain: Findings: there are no abnormal [id number] axial fluid collections, midline shift, or mass effect. Gibson- white differentiation is normal. Global cortical involutional changes are present that are advanced for the patient's stated age. The ventricular system is enlarged but commensurate with the degree of sulcal prominence. Chronic lacuna infarctions bilateral basal ganglia. Severe periventricular and supraventricular white matter hypodensity is present that is nonspecific in appearance, but most likely to represent microvascular ischemic changes. Atherosclerotic vascular calcification is present within the carotid siphons and distal vertebral arteries. The imaged paranasal sinuses, mastoid air cells, and tympanic spaces are clear. Impression: No definite evidence of an acute intracranial process. If clinical concern persists for acute stroke and it would alter patient management,consider MRI/MRA brain. Chronic lacunar infacrtions bilateral basal ganglia. Severe microvascular white matter ischemic changes, with associated volume loss. XRAY XRAY Interpreted by: Radiologist Diagnosis Discharge Problem: Partial small bowel obstruction ADDITIONAL NOTES Additional Notes Additional Notes: patient admitted for further evaluation
--- NOTE | 2018-12-23 22:22 | RAD ---
Left hip, 2 views Indication: Fall, history of hip fracture Comparison: 01/24/2015 Findings: There is generalized osteopenia. A chronic nonunited fracture of the greater trochanter is similar to prior. No acute cortical disruption or malalignment identified. There are minimal degenerative changes of the hips. A few mildly dilated gas-filled small bowel loops are noted. There is gas within the normal caliber colon. Impression: No acute hip fracture or dislocation identified. Chronic greater trochanter fracture. Nonspecific mildly prominent small bowel loops. Low-grade partial obstruction cannot be excluded. Correlation recommended. Reported By:
[2018-12-23] MEDS ORDERED: CLEMASTINE PO PRN (23:57)
[2018-12-24 01:04] LABS: BILIRUBIN,URINE NEGATIVE (NEGATIVE); BLOOD/HEMOGLOBIN,URINE 4+ (NEGATIVE); GLUCOSE, URINE NEGATIVE (NEGATIVE); KETONES,URINE 2+ (NEGATIVE); LEUKOCYTE ESTERASE ,URINE 1+ (NEGATIVE); NITRITES,URINE NEGATIVE (NEGATIVE); PROTEIN,URINE 2+ (NEGATIVE); UROBILINOGEN,URINE NORMAL (NORMAL)
[2018-12-24] MEDS: DEMEROL INJ IVP PRN ×4 (01:09→19:53)
[2018-12-24 01:12] LABS: APPEARANCE,URINE CLEAR (CLEAR); COLOR,URINE YELLOW (YELLOW)
[2018-12-24 01:13] LABS: BACTERIA,URINE NEGATIVE /HPF (NEGATIVE); SQUAMOUS EPITHELIAL CELL,UR RARE /HPF (NEGATIVE)
[2018-12-24] MEDS ORDERED: KLOR-CON PO PRN (01:50)
[2018-12-24] MEDS ORDERED: POTASSIUM CHL 40 MEQ/NS 0.45% 500 ML IV PRN (01:50)
[2018-12-24] MEDS ORDERED: POTASSIUM CHL 60 MEQ/NS 0.45% 500 ML IV PRN (01:50)
[2018-12-24] MEDS ORDERED: MICRO K EXTEN CAP 10 MEQ PO PRN (01:50)
[2018-12-24] MEDS ORDERED: MAGNESIUM SULFATE 1 GRAM/100 mL PREMIX 1 GM/100 ML BAG IV PRN (01:50)
[2018-12-24] MEDS ORDERED: POTASSIUM CHLORIDE LIQ 20 MEQ UDC PO PRN (01:50)
[2018-12-24 02:13] VITALS: BMI 15.6
[2018-12-24] MEDS: NS 1000 ML 1,000 ML IV SCH ×3 (03:44→22:39)
[2018-12-24 05:58] LABS: BASOPHILS # (AUTO) 0.1 X10^3/uL (0.0-0.1); BASOPHILS % (AUTO) 0.8 % (0.2-1.0); EOSINOPHILS # (AUTO) 0.2 x10^3/uL (0.0-0.2); EOSINOPHILS % (AUTO) 3.1 % (0.9-2.9); HEMOGLOBIN 9.3 g/dL (12.0-16.0); LYMPHOCYTES # (AUTO) 1.8 X10^3/uL (1.3-2.9); LYMPHOCYTES % (AUTO) 27.1 % (21.0-51.0); MEAN CORPUSCULAR HEMOGLOBIN 32.2 pg (27.0-34.0); MEAN CORPUSCULAR HGB CONC 34.3 g/dL (33.0-35.0); MEAN CORPUSCULAR VOLUME 93.8 fL (80.0-100.0); MONOCYTES # (AUTO) 0.7 x10^3/uL (0.3-0.8); NEUTROPHILS # (AUTO) 3.8 x10^3/uL (2.2-4.8); PLATELET COUNT 307 X10^3/uL (150.0-450.0); RED BLOOD COUNT 2.88 X10^6/uL (3.5-5.4); RED CELL DISTRIBUTION WIDTH 13.3 % (11.6-16.5); WHITE BLOOD COUNT 6.6 X10^3/uL (3.6-10.0)
[2018-12-24] MEDS: SYNTHROID 25 mcg TAB PO SCH ×2 (06:04→10:00)
[2018-12-24 06:09] LABS: ALANINE AMINOTRANSFERASE 12 Units/L (12-78); ALBUMIN 2.8 g/dL (3.4-5.0); ALKALINE PHOSPHATASE 174 Units/L (46-116); ASPARTATE AMINO TRANSFERASE 15 Units/L (15-37); BLOOD UREA NITROGEN 15 mg/dL (7-18); CALCIUM 8.4 mg/dL (8.5-10.1); CARBON DIOXIDE 25.7 mmol/L (21-32); CHLORIDE 109 mmol/L (98-107); COR CA(FOR HYPOALB) 9.4 mg/dL (8.5-10.1); SODIUM 144 mmol/L (136-145); TOTAL PROTEIN 5.4 g/dL (6.4-8.2); eGFR NON BLACK RACES 50 (>60)
[2018-12-24] MEDS: DUONEB 0.5 MG/3 MG NEB SCH ×3 (06:10→21:23)
--- NOTE | 2018-12-24 06:14 | RAD ---
HISTORY: Small-bowel obstruction, COPD Study: Chest AP portable Comparison: 12/23/2018 Findings: There is a port present on the right. The heart is enlarged. The aorta is ectatic. The cristi are normal. No congestive heart failure is noted. The lungs are mildly hyperinflated but free of acute alveolar infiltrates. No pleural effusions are identified. The bony thorax is unremarkable. IMPRESSION: Mild cardiomegaly without congestive heart failure Lungs mildly hyperinflated but free of acute infiltrates Reported By:
[2018-12-24] MEDS: K-RIDER 10 MEQ/NS 100 ML 10 MEQ/100 ML BAG IV PRN ×2 (06:41→10:23)
[2018-12-24] MEDS: LOVENOX INJ 30 MG SYR SC SCH (09:58)
[2018-12-24] MEDS: MEGACE PO SCH ×2 (09:59→21:46)
[2018-12-24] MEDS: LEVAQUIN TAB 250 MG PO SCH (09:59)
[2018-12-24] MEDS: TOPROL XL PO SCH (09:59)
[2018-12-24] MEDS: OXYBUTYNIN CHLORIDE ER PO SCH (09:59)
[2018-12-24] MEDS: COLACE CAP 100 MG PO SCH ×2 (09:59→21:46)
[2018-12-24] MEDS: ARICEPT TAB 10 MG PO SCH (10:00)
[2018-12-24] MEDS: PERCOCET TAB 5/325 MG PO PRN ×3 (10:21→22:41)
[2018-12-24] MEDS: PROCALAMINE 3 % 1,000 ML IV SCH (10:28)
--- NOTE | 2018-12-24 11:13 | RAD ---
HISTORY: Constipation Study: KUB Comparison: None Findings: The abdominal gas pattern is nonspecific and nonobstructive. No abnormal masses are identified. Calcifications measuring 1.4 and 0.7 cm overlie the left kidney likely left renal calculi. A large amount of stool is not identified. The regional skeleton is osteopenic. IMPRESSION: Large amount of stool not identified Probable left renal calculi Osteopenia Reported By:
[2018-12-24] MEDS: ZyPREXA TAB 5 MG PO SCH (21:45)
[2018-12-24] MEDS: ZOCOR TAB 20 MG PO SCH (21:46)
[2018-12-24] MEDS: MIRALAX POWDER (1 DOSE 17 G) PO SCH (21:46)
[2018-12-24] MEDS: COZAAR PO SCH (21:46)
--- NOTE | 2018-12-24 22:33 | DR.H&P ---
H&P - History & Physical for Day of: H&P Date: 12/23/18 - Chief Complaint Chief Complaint: WEAKNESS, DECREASED APPETITE, LEFT HIP PAIN - History of Present Illness History of Present Illness: IS A 83 YEAR OLD PATIENT OF OURS WHO IS A RESIDENT OF [facility]. SHE PRESENTED WITH GENERALIZED WEAKNESS, DECREASED APPETITE, AND DECREASED BLOOD PRESSURE. FAMILY REPORTS THAT SHE HAS LOST APPROXIMATELY 15LBS IN 1 WEEK. SHE REPORTEDLY FELL AT THE DETENTION YESTERDAY AND IS COMPLAINING OF LEFT HIP PAIN. ON ARRIVAL, VITALS WERE 99.4-74-18-95%-132/86. LABS WERE OBTAINED. ABNORMAL LAB VALUES INCLUDE THE FOLLOWING: RBC 3.12, HGB 9.9, HCT 29.2, BUN 19, CREATININE 1.38, GLUCOSE 117, ALK PHOS 182, TOTAL PROTEIN 5.9, ALBUMIN 3.1. A CHEST XRAY WAS OBTAINED AND REVEALED: Cardiomegaly and COPD change with minimal increased interstitial markings and vague patchy left upper lung opacity. Early changes of CHF versus developing left upper lung pneumonia. Follow-up to resolution. A BRAIN CT WAS OBTAINED AND REVEALED: No definite evidence of an acute intracranial process. If clinical concern persists for acute stroke and it would alter patient management, consider MRI/MRA brain. Chronic lacunar infarctions bilateral basal ganglia. Severe microvascular white matter ischemic changes, with associated volume loss. HIP XRAY OBTAINED AND REVEALED: No acute hip fracture or dislocation identified. Chronic greater trochanter fracture. Nonspecific mildly prominent small bowel loops. Low-grade partial obstruction cannot be excluded. Correlation recommended. SHE WAS GIVEN PERCOCET 5/325MG PO X 1 DOSE IN THE ER. SHE WAS ADMITTED FOR FURTHER EVALUATION AND TREATMENT OF FAILURE TO THRIVE, DEHYDRATION, HYPOKALEMIA, GENERALIZED WEAKNESS, AND CONSTIPATION. SHE WAS STARTED ON PROCALAMINE AT 40ML/HR, NORMAL SALINE AT 75ML/HR, RESPIRATORY TREATMENTS, LOVENOX 30MG SC AILY, LEVAQUN 250MG PO DAILY, DEMEROL 12.5MG IV Q4H, MIRALAX 15ML PO QID, AND HOME MEDICATIONS WERE RESUMED. WE PLAN TO FOLLOW UP WITH AM LABS AND CONTINUE TO MONITOR. - Past Medical History Past Medical History: Coronary Artery Disease, Hypertension, Dyslipidemia, Alzheimers, Dementia, Depression, Anxiety, COPD, GERD, Arthritis - Past Surgical History Surgical History: Cholecystectomy, Hysterectomy - Family History Family Medical History: Diabetes Mellitus, [place], Coronary Artery Disease, Hypertension - Social History Alcohol Use: None Drug Use: None - Medications Home Medications: azithromycin Allergy (Verified 11/08/18 18:08) methylprednisolone Allergy (Verified 11/08/18 18:08) morphine Allergy (Verified 12/14/18 17:03) CONTINUE taking the following medications dextromethorphan-guaifenesin [Tussin DM] 10 ml PO Q8H PRN 12/24/18 [History] - Review of Systems Constitutional: Weakness Eyes: No Symptoms Reported ENT: No Symptoms Reported Respiratory: Shortness of Breath Cardiovascular: No Symptoms Reported Gastrointestinal: No Symptoms Reported Genitourinary: No Symptoms Reported Musculoskeletal: See HPI, Other (LEFT HIP PAIN ) Skin: No Symptoms Reported Neurological: Weakness, Confusion - Physical Exam Vital Signs: Temperature 99.1 F Pulse Rate [Left Brachial] 98 Pulse Rate 76 Respiratory Rate 16 Blood Pressure [Left Arm] 135/69 Blood Pressure [Right Arm] 173/95 Blood Pressure 132/86 O2 Sat by Pulse Oximetry 95 Oriented: Person Eyes: Normal Ear: Normal Nose: Normal Throat: Normal Respiratory: Diminished Throughout Cardiovascular: Normal. negative: S3, S4, Murmur : Normal Auscultation: Bowel Sounds: Normal Palpation: Normal Tenderness: Normal Skin: Bruising Musculoskeletal: Left, Hip, Tender Psychiatric: Normal Mood Description: Calm Affect: Normal Speech Pattern: Clear - Assessment/Plan (1) Failure to thrive Qualifiers: Failure to thrive age range: in adult Status: Acute Plan: PROCAL AT 40ML/HR, NORMAL SALINE AT 75ML/HR, MEGACE, CONTINUE TO MONITOR (2) Dehydration Status: Acute Plan: PROCAL AT 40ML/HR, NORMAL SALINE AT 75ML/HR (3) Hypokalemia Status: Acute Plan: POTASSIUM PROTOCOL (4) Generalized weakness Status: Acute (5) Partial small bowel obstruction Status: Acute Plan: COLACE, MILK OF MAGNESIA, CONTINUE TO MONITOR - Allergies Allergies/Adverse Reactions: Allergies Allergy/AdvReac Type Severity Reaction Status Date / Time azithromycin Allergy Verified 11/08/18 18:08 methylprednisolone Allergy Verified 11/08/18 18:08 morphine Allergy Verified 12/14/18 17:03
[2018-12-25] MEDS: DEMEROL INJ IVP PRN ×5 (00:45→23:33)
[2018-12-25] MEDS: NS 1000 ML 1,000 ML IV SCH ×3 (04:31→21:29)
[2018-12-25] MEDS: DUONEB 0.5 MG/3 MG NEB SCH ×3 (05:25→21:10)
[2018-12-25 05:41] LABS: BASOPHILS # (AUTO) 0.1 X10^3/uL (0.0-0.1); EOSINOPHILS # (AUTO) 0.3 x10^3/uL (0.0-0.2); EOSINOPHILS % (AUTO) 6.2 % (0.9-2.9); HEMATOCRIT 24.9 % (36.0-47.0); HEMOGLOBIN 8.5 g/dL (12.0-16.0); LYMPHOCYTES # (AUTO) 1.2 X10^3/uL (1.3-2.9); LYMPHOCYTES % (AUTO) 22.1 % (21.0-51.0); MEAN CORPUSCULAR HEMOGLOBIN 31.9 pg (27.0-34.0); MEAN CORPUSCULAR HGB CONC 34.3 g/dL (33.0-35.0); MEAN CORPUSCULAR VOLUME 92.7 fL (80.0-100.0); MONOCYTES # (AUTO) 0.6 x10^3/uL (0.3-0.8); MONOCYTES % (AUTO) 11.3 % (0.0-13.0); NEUTROPHILS # (AUTO) 3.2 x10^3/uL (2.2-4.8); NEUTROPHILS % (AUTO) 59.4 % (42.0-75.0); PLATELET COUNT 280 X10^3/uL (150.0-450.0); RED BLOOD COUNT 2.68 X10^6/uL (3.5-5.4); RED CELL DISTRIBUTION WIDTH 13.4 % (11.6-16.5); WHITE BLOOD COUNT 5.3 X10^3/uL (3.6-10.0)
[2018-12-25 06:00] LABS: ALANINE AMINOTRANSFERASE 11 Units/L (12-78); ALBUMIN 2.7 g/dL (3.4-5.0); ALKALINE PHOSPHATASE 165 Units/L (46-116); ASPARTATE AMINO TRANSFERASE 15 Units/L (15-37); BLOOD UREA NITROGEN 8 mg/dL (7-18); CALCIUM 8.5 mg/dL (8.5-10.1); CARBON DIOXIDE 23.7 mmol/L (21-32); CHLORIDE 108 mmol/L (98-107); COR CA(FOR HYPOALB) 9.5 mg/dL (8.5-10.1); CREATININE 0.82 mg/dL (0.55-1.02); SODIUM 142 mmol/L (136-145); TOTAL PROTEIN 5.2 g/dL (6.4-8.2); eGFR NON BLACK RACES > 60 (>60)
[2018-12-25] MEDS: SYNTHROID 25 mcg TAB PO SCH (06:10)
[2018-12-25] MEDS: PERCOCET TAB 5/325 MG PO PRN ×4 (06:10→21:20)
[2018-12-25] MEDS: LOVENOX INJ 30 MG SYR SC SCH (08:31)
[2018-12-25] MEDS: OXYBUTYNIN CHLORIDE ER PO SCH (08:32)
[2018-12-25] MEDS: MEGACE PO SCH ×2 (08:32→21:19)
[2018-12-25] MEDS: TOPROL XL PO SCH (08:32)
[2018-12-25] MEDS: COLACE CAP 100 MG PO SCH ×2 (08:32→21:19)
[2018-12-25] MEDS: MILK OF MAGNESIA PO SCH ×4 (08:32→21:18)
[2018-12-25] MEDS: LEVAQUIN TAB 250 MG PO SCH (08:32)
[2018-12-25] MEDS: ARICEPT TAB 10 MG PO SCH (08:32)
[2018-12-25] MEDS: PROCALAMINE 3 % 1,000 ML IV SCH (11:43)
[2018-12-25] MEDS: CHECK PATCH XX SCH ×2 (14:51→21:29)
--- NOTE | 2018-12-25 15:23 | RAD ---
Examination: KUB History: Constipation Comparison 12/24/2018 Findings: There is moderate gaseous distention of small and large bowel. The appearance does not suggest a distal obstruction. There is a left para lumbar calcification which may be renal. There are surgical clips right upper quadrant. Impression: Intestinal distention most likely nonobstructing ileus. Left flank calcification may represent intrarenal calculus. Reported By:
[2018-12-25] MEDS: ZOCOR TAB 20 MG PO SCH (21:18)
[2018-12-25] MEDS: ZyPREXA TAB 5 MG PO SCH (21:19)
[2018-12-25] MEDS: COZAAR PO SCH (21:19)
[2018-12-25] MEDS: MIRALAX POWDER (1 DOSE 17 G) PO SCH (21:20)
[2018-12-26] MEDS: PERCOCET TAB 5/325 MG PO PRN ×5 (01:49→22:02)
[2018-12-26] MEDS: NS 1000 ML 1,000 ML IV SCH ×3 (04:04→21:09)
[2018-12-26] MEDS ORDERED: CATAPRES TAB 0.1 MG PO ONE (04:49)
[2018-12-26] MEDS ORDERED: CATAPRES TAB 0.1 MG ONE (04:56)
[2018-12-26 05:22] LABS: BASOPHILS # (AUTO) 0.1 X10^3/uL (0.0-0.1); BASOPHILS % (AUTO) 0.9 % (0.2-1.0); EOSINOPHILS # (AUTO) 0.4 x10^3/uL (0.0-0.2); EOSINOPHILS % (AUTO) 6.6 % (0.9-2.9); HEMATOCRIT 26.9 % (36.0-47.0); HEMOGLOBIN 9.1 g/dL (12.0-16.0); LYMPHOCYTES # (AUTO) 1.3 X10^3/uL (1.3-2.9); LYMPHOCYTES % (AUTO) 21.9 % (21.0-51.0); MEAN CORPUSCULAR HEMOGLOBIN 31.4 pg (27.0-34.0); MEAN CORPUSCULAR HGB CONC 33.7 g/dL (33.0-35.0); MEAN CORPUSCULAR VOLUME 93.3 fL (80.0-100.0); MEAN PLATELET VOLUME 7.1 fL (7.4-11.0); MONOCYTES # (AUTO) 0.7 x10^3/uL (0.3-0.8); MONOCYTES % (AUTO) 11.7 % (0.0-13.0); NEUTROPHILS # (AUTO) 3.4 x10^3/uL (2.2-4.8); NEUTROPHILS % (AUTO) 58.9 % (42.0-75.0); PLATELET COUNT 288 X10^3/uL (150.0-450.0); RED BLOOD COUNT 2.89 X10^6/uL (3.5-5.4); RED CELL DISTRIBUTION WIDTH 13.9 % (11.6-16.5); WHITE BLOOD COUNT 5.8 X10^3/uL (3.6-10.0)
[2018-12-26 05:33] LABS: ALANINE AMINOTRANSFERASE 11 Units/L (12-78); ALKALINE PHOSPHATASE 196 Units/L (46-116); ASPARTATE AMINO TRANSFERASE 15 Units/L (15-37); BLOOD UREA NITROGEN 7 mg/dL (7-18); CALCIUM 8.7 mg/dL (8.5-10.1); CHLORIDE 107 mmol/L (98-107); COR CA(FOR HYPOALB) 9.5 mg/dL (8.5-10.1); CREATININE 0.82 mg/dL (0.55-1.02); SODIUM 142 mmol/L (136-145); TOTAL PROTEIN 5.6 g/dL (6.4-8.2); eGFR NON BLACK RACES > 60 (>60)
[2018-12-26] MEDS: DUONEB 0.5 MG/3 MG NEB SCH ×5 (05:42→20:41)
[2018-12-26] MEDS: SYNTHROID 25 mcg TAB PO SCH (06:19)
[2018-12-26] MEDS ORDERED: DULCOLAX SUPPOSITORY 10 MG RECTAL ONE (07:13)
[2018-12-26] MEDS: OXYBUTYNIN CHLORIDE ER PO SCH (08:33)
[2018-12-26] MEDS: COLACE CAP 100 MG PO SCH ×2 (08:33→20:29)
[2018-12-26] MEDS: MEGACE PO SCH ×2 (08:33→20:29)
[2018-12-26] MEDS: TOPROL XL PO SCH (08:34)
[2018-12-26] MEDS: ARICEPT TAB 10 MG PO SCH (08:34)
[2018-12-26] MEDS: LEVAQUIN TAB 250 MG PO SCH (08:34)
[2018-12-26] MEDS: MILK OF MAGNESIA PO SCH ×4 (08:35→20:30)
[2018-12-26] MEDS: K-DUR TAB 20 MEQ PO PRN (08:41)
[2018-12-26] MEDS: LOVENOX INJ 30 MG SYR SC SCH (08:43)
[2018-12-26] MEDS: CHECK PATCH XX SCH ×2 (08:53→20:29)
[2018-12-26] MEDS: NORVASC TAB 5 MG PO SCH (10:12)
[2018-12-26] MEDS: DEMEROL INJ IVP PRN ×2 (12:34→20:31)
[2018-12-26] MEDS: PROCALAMINE 3 % 1,000 ML IV SCH (13:27)
[2018-12-26] MEDS: COZAAR PO SCH (20:29)
[2018-12-26] MEDS: ZyPREXA TAB 5 MG PO SCH (20:29)
[2018-12-26] MEDS: ZOCOR TAB 20 MG PO SCH (20:29)
[2018-12-26] MEDS: MIRALAX POWDER (1 DOSE 17 G) PO SCH (20:30)
[2018-12-27] MEDS: DEMEROL INJ IVP PRN ×4 (00:38→16:34)
[2018-12-27] MEDS: NS 1000 ML 1,000 ML IV SCH ×3 (00:39→14:54)
[2018-12-27 05:16] LABS: BASOPHILS % (AUTO) 0.9 % (0.2-1.0); EOSINOPHILS # (AUTO) 0.3 x10^3/uL (0.0-0.2); EOSINOPHILS % (AUTO) 5.4 % (0.9-2.9); HEMATOCRIT 27.4 % (36.0-47.0); HEMOGLOBIN 9.3 g/dL (12.0-16.0); LYMPHOCYTES # (AUTO) 1.3 X10^3/uL (1.3-2.9); LYMPHOCYTES % (AUTO) 25.1 % (21.0-51.0); MEAN CORPUSCULAR HEMOGLOBIN 31.7 pg (27.0-34.0); MEAN CORPUSCULAR HGB CONC 33.9 g/dL (33.0-35.0); MEAN CORPUSCULAR VOLUME 93.7 fL (80.0-100.0); MEAN PLATELET VOLUME 6.7 fL (7.4-11.0); MONOCYTES # (AUTO) 0.6 x10^3/uL (0.3-0.8); MONOCYTES % (AUTO) 11.8 % (0.0-13.0); NEUTROPHILS % (AUTO) 56.8 % (42.0-75.0); PLATELET COUNT 303 X10^3/uL (150.0-450.0); RED BLOOD COUNT 2.93 X10^6/uL (3.5-5.4); RED CELL DISTRIBUTION WIDTH 13.7 % (11.6-16.5); WHITE BLOOD COUNT 5.3 X10^3/uL (3.6-10.0)
[2018-12-27 05:35] LABS: ALANINE AMINOTRANSFERASE 15 Units/L (12-78); ALBUMIN 2.9 g/dL (3.4-5.0); ALKALINE PHOSPHATASE 215 Units/L (46-116); ASPARTATE AMINO TRANSFERASE 20 Units/L (15-37); BLOOD UREA NITROGEN 7 mg/dL (7-18); CALCIUM 8.7 mg/dL (8.5-10.1); CARBON DIOXIDE 22.9 mmol/L (21-32); CHLORIDE 108 mmol/L (98-107); COR CA(FOR HYPOALB) 9.6 mg/dL (8.5-10.1); CREATININE 0.81 mg/dL (0.55-1.02); SODIUM 142 mmol/L (136-145); TOTAL PROTEIN 5.7 g/dL (6.4-8.2); eGFR NON BLACK RACES > 60 (>60)
[2018-12-27] MEDS: DUONEB 0.5 MG/3 MG NEB SCH ×2 (05:35→14:52)
[2018-12-27] MEDS: K-DUR TAB 20 MEQ PO PRN (06:01)
[2018-12-27] MEDS: SYNTHROID 25 mcg TAB PO SCH (06:01)
[2018-12-27] MEDS: PERCOCET TAB 5/325 MG PO PRN (06:01)
--- NOTE | 2018-12-27 06:34 | RAD ---
HISTORY: Follow-up ileus Study: KUB Comparison: 12/25/2018 Findings: The abdominal gas pattern is nonspecific and nonobstructive. Overall the amount of gas in the colon and small bowel has decreased since the prior examination likely consistent with slight improvement in the patient's ileus. No abnormal masses or abnormal calcifications are identified. The regional skeleton is osteopenic. IMPRESSION: Improving ileus Reported By:
[2018-12-27] MEDS: MEGACE PO SCH ×2 (09:06→21:57)
[2018-12-27] MEDS: MILK OF MAGNESIA PO SCH ×4 (09:08→21:57)
[2018-12-27] MEDS: LEVAQUIN TAB 250 MG PO SCH (09:08)
[2018-12-27] MEDS: ARICEPT TAB 10 MG PO SCH (09:08)
[2018-12-27] MEDS: NORVASC TAB 5 MG PO SCH (09:08)
[2018-12-27] MEDS: TOPROL XL PO SCH (09:08)
[2018-12-27] MEDS: COLACE CAP 100 MG PO SCH ×2 (09:08→21:57)
[2018-12-27] MEDS: OXYBUTYNIN CHLORIDE ER PO SCH (09:08)
[2018-12-27] MEDS: LOVENOX INJ 30 MG SYR SC SCH (09:09)
[2018-12-27] MEDS: CHECK PATCH XX SCH ×2 (09:11→21:56)
[2018-12-27] MEDS: VERSED 100 MG in NS 100 ML IV 80 ML IV PRN (10:55)
[2018-12-27] MEDS ORDERED: DUONEB 0.5 MG/3 MG NEB PRN (14:50)
[2018-12-27] MEDS: PROCALAMINE 3 % 1,000 ML IV SCH (14:55)
[2018-12-27 15:41] LABS: BILIRUBIN,URINE NEGATIVE (NEGATIVE); BLOOD/HEMOGLOBIN,URINE 2+ (NEGATIVE); GLUCOSE, URINE NEGATIVE (NEGATIVE); KETONES,URINE NEGATIVE (NEGATIVE); LEUKOCYTE ESTERASE ,URINE NEGATIVE (NEGATIVE); NITRITES,URINE NEGATIVE (NEGATIVE); PROTEIN,URINE NEGATIVE (NEGATIVE); UROBILINOGEN,URINE NORMAL (NORMAL)
[2018-12-27 15:46] LABS: APPEARANCE,URINE CLEAR (CLEAR); COLOR,URINE PALE YELLOW (YELLOW)
[2018-12-27 15:47] LABS: BACTERIA,URINE TRACE /HPF (NEGATIVE); SQUAMOUS EPITHELIAL CELL,UR NEGATIVE /HPF (NEGATIVE)
--- NOTE | 2018-12-27 21:11 | PCM.PROG ---
Progress Note - Progress Note for Day of Date of Exam: 12/27/18 - Subjective Subjective: WAS ADMITTED FOR FAILURE TO THRIVE, DEHYDRATION, GENERALIZED WEAKNESS, AND HIP PAIN FOLLOWING A FALL. SHE WAS NOTED TO BE CONSTIPATED ON ADMISSION. FAMILY REPORTS THAT SHE HAS CONTINUED TO BE IN MODERATE TO SEVERE PAIN THROUGHOUT THE NIGHT AND IS NOT EATING. SHE IS DISORIENTED AND MOANING ON MORNING ROUNDS. ON EXAMINATION, HEART IS REGULAR IN RATE AND RHYTHM. BILATERAL LUNGS ARE NOTED WITH DIMINISHED LUNG SOUNDS THROUGHOUT. ABDOMEN IS DISTENDED AND NOTED WITH TENDERNESS TO PALPATION. HYPOACTIVE BOWEL SOUNDS NOTED. HER VITALS THIS MORNING ARE 97.8-112-20-96%-184/99. LABS WERE OBTAINED. ABNORMAL LAB VALUES INCLUDE THE FOLLOWING: RBC 2.93, HGB 9.3, HCT 27.4, CHLORIDE 108, ALK PHOS 215, TOTAL PROTEIN 5.7, ALBUMIN 2.9. A KUB WAS REPEATED THIS MORNING AND REVEALED: IMPROVING ILEUS. TODAY, WE WILL INCREASE HER FENTANYL PATCH TO 50MCG/HR AND START VERSED AT 2MG/HR. OTHERWISE, WE WILL FOLLOW UP WITH AM LABS AND CONTINUE TO MONITOR. - Past Medical Family Social History Allergies: Allergies azithromycin Allergy (Verified 11/08/18 18:08) methylprednisolone Allergy (Verified 11/08/18 18:08) morphine Allergy (Verified 12/14/18 17:03) - Review of Systems ROS: No change since H&P - Vital Signs and I&O's Vital Signs: Temperature 98.0 F Pulse Rate [Left Brachial] 112 Pulse Rate 102 Respiratory Rate 16 Blood Pressure [Left Arm] 170/98 Blood Pressure [Right Arm] 138/95 Blood Pressure 132/86 O2 Sat by Pulse Oximetry 95 Intake and Output: Intake & Output 12/25/18 12/26/18 12/27/18 12/28/18 11:59 11:59 11:59 11:59 Intake Total 2188 / 2188 410 / 410 1196 / 1196 1208 / 1208 Output Total 2400 / 2400 Balance 2188 / 2188 -1989 1196 / 1196 1208 / 1208 - Physical Exam Oriented: Not Oriented Eyes: Normal Ear: Normal Nose: Normal Throat: Normal Respiratory: Generalized, Diminished Cardiovascular: Normal. negative: S3, S4, Murmur : Normal Auscultation: Bowel Sounds: Normal Palpation: Normal Tenderness: Normal Skin: Bruising Musculoskeletal: Left, Hip, Tender Psychiatric: Normal Mood Description: Calm Affect: Normal Speech Pattern: Delayed - Laboratory and Diagnostics Result Diagrams: 12/27/18 05:03 12/27/18 05:03 Labs: 12/24/18 00:14 Blood Blood Culture - Preliminary 12/24/18 00:08 Blood Blood Culture - Preliminary Laboratory WBC 5.3 X10^3/uL (3.6-10.0) 12/27/18 05:03 RBC 2.93 X10^6/uL (3.5-5.4) L 12/27/18 05:03 Hgb 9.3 g/dL (12.0-16.0) L 12/27/18 05:03 Hct 27.4 % (36.0-47.0) L 12/27/18 05:03 MCV 93.7 fL (80.0-100.0) 12/27/18 05:03 MCH 31.7 pg (27.0-34.0) 12/27/18 05:03 MCHC 33.9 g/dL (33.0-35.0) 12/27/18 05:03 RDW 13.7 % (11.6-16.5) 12/27/18 05:03 Plt Count 303 X10^3/uL (150.0-450.0) 12/27/18 05:03 MPV 6.7 fL (7.4-11.0) L 12/27/18 05:03 Neut % (Auto) 56.8 % (42.0-75.0) 12/27/18 05:03 Lymph % (Auto) 25.1 % (21.0-51.0) 12/27/18 05:03 [place] % (Auto) 11.8 % (0.0-13.0) 12/27/18 05:03 Eos % (Auto) 5.4 % (0.9-2.9) H 12/27/18 05:03 Baso % (Auto) 0.9 % (0.2-1.0) 12/27/18 05:03 Neut # (Auto) 3.0 x10^3/uL (2.2-4.8) 12/27/18 05:03 Lymph # (Auto) 1.3 X10^3/uL (1.3-2.9) 12/27/18 05:03 [place] # (Auto) 0.6 x10^3/uL (0.3-0.8) 12/27/18 05:03 Eos # (Auto) 0.3 x10^3/uL (0.0-0.2) H 12/27/18 05:03 Baso # (Auto) 0.0 X10^3/uL (0.0-0.1) 12/27/18 05:03 Absolute Nucleated RBC 0.0 /100WBC 12/27/18 05:03 Sodium 142 mmol/L (136-145) 12/27/18 05:03 Corrected Sodium TNP 12/27/18 05:03 Potassium 3.6 mmol/L (3.5-5.1) 12/27/18 05:03 Chloride 108 mmol/L (98-107) H 12/27/18 05:03 Carbon Dioxide 22.9 mmol/L (21-32) 12/27/18 05:03 BUN 7 mg/dL (7-18) 12/27/18 05:03 Creatinine 0.81 mg/dL (0.55-1.02) 12/27/18 05:03 Est GFR (MDRD) Af Amer > 60 (>60) 12/27/18 05:03 Est GFR (MDRD) Non-Af > 60 (>60) 12/27/18 05:03 Glucose 98 mg/dL (65-99) 12/27/18 05:03 Calcium 8.7 mg/dL (8.5-10.1) 12/27/18 05:03 Corrected Calcium 9.6 mg/dL (8.5-10.1) 12/27/18 05:03 Magnesium 2.1 mg/dL (1.7-2.9) 12/23/18 19:55 Total Bilirubin 0.40 mg/dL (0.2-1.0) 12/27/18 05:03 AST 20 Units/L (15-37) 12/27/18 05:03 ALT 15 Units/L (12-78) 12/27/18 05:03 Alkaline Phosphatase 215 Units/L (46-116) H 12/27/18 05:03 Total Protein 5.7 g/dL (6.4-8.2) L 12/27/18 05:03 Albumin 2.9 g/dL (3.4-5.0) L 12/27/18 05:03 Globulin 2.8 g/dL (2.5-4.5) 12/27/18 05:03 Albumin/Globulin Ratio 1.0 Ratio (1.1-2.1) L 12/27/18 05:03 Specimen Type Catherized urine 12/27/18 14:30 Urine Color Pale yellow (YELLOW) 12/27/18 14:30 Urine Appearance Clear (CLEAR) 12/27/18 14:30 Urine pH 7.0 (5.0 - 8.0) 12/27/18 14:30 Ur Specific [place] 1.010 (1.000-1.030) 12/27/18 14:30 Urine Protein Negative (NEGATIVE) 12/27/18 14:30 Urine Glucose (UA) Negative (NEGATIVE) 12/27/18 14:30 Urine Ketones Negative (NEGATIVE) 12/27/18 14:30 Urine Occult Blood 2+ (NEGATIVE) 12/27/18 14:30 Urine Nitrite Negative (NEGATIVE) 12/27/18 14:30 Urine Bilirubin Negative (NEGATIVE) 12/27/18 14:30 Urine Urobilinogen Normal (NORMAL) 12/27/18 14:30 Ur Leukocyte Esterase Negative (NEGATIVE) 12/27/18 14:30 Urine RBC 10-20 /HPF (NONE SEEN) 12/27/18 14:30 Urine WBC 0-2 /HPF (NONE SEEN) 12/27/18 14:30 Ur Squamous Epith Cells Negative /HPF (NEGATIVE) 12/27/18 14:30 Urine Bacteria Trace /HPF (NEGATIVE) 12/27/18 14:30 Ur Culture Indicated? No/not indicated 12/27/18 14:30 - Plan (1) Failure to thrive Status: Acute Qualifiers: Failure to thrive age range: in adult Plan: PROCAL AT 40ML/HR, NORMAL SALINE AT 75ML/HR, CONTINUE TO MONITOR (2) Dehydration Status: Acute Plan: PROCAL AT 40ML/HR, NORMAL SALINE AT 75ML/HR (3) Hypokalemia Status: Acute Plan: POTASSIUM PROTOCOL (4) Generalized weakness Status: Acute (5) Partial small bowel obstruction Status: Acute Plan: CONTINUE TO MONITOR (6) Intractable pain Status: Acute Plan: FENTANYL PATCH, VERSED 2MG/HR IV, CONTINUE TO MONITOR
[2018-12-27] MEDS: COZAAR PO SCH (21:57)
[2018-12-27] MEDS: ZOCOR TAB 20 MG PO SCH (22:00)
[2018-12-27] MEDS: MIRALAX POWDER (1 DOSE 17 G) PO SCH (22:00)
[2018-12-27] MEDS: ZyPREXA TAB 5 MG PO SCH (22:00)
[2018-12-28] MEDS: NS 1000 ML 1,000 ML IV SCH ×4 (02:09→12:21)
[2018-12-28] MEDS: DEMEROL INJ IVP PRN ×2 (02:10→07:39)
[2018-12-28] MEDS: SYNTHROID 25 mcg TAB PO SCH (06:04)
[2018-12-28 07:50] LABS: BASOPHILS # (AUTO) 0.1 X10^3/uL (0.0-0.1); BASOPHILS % (AUTO) 0.9 % (0.2-1.0); EOSINOPHILS # (AUTO) 0.4 x10^3/uL (0.0-0.2); EOSINOPHILS % (AUTO) 6.2 % (0.9-2.9); HEMATOCRIT 31.4 % (36.0-47.0); HEMOGLOBIN 10.4 g/dL (12.0-16.0); LYMPHOCYTES # (AUTO) 1.7 X10^3/uL (1.3-2.9); LYMPHOCYTES % (AUTO) 27.8 % (21.0-51.0); MEAN CORPUSCULAR HEMOGLOBIN 31.1 pg (27.0-34.0); MEAN CORPUSCULAR VOLUME 94.2 fL (80.0-100.0); MEAN PLATELET VOLUME 6.6 fL (7.4-11.0); MONOCYTES # (AUTO) 0.7 x10^3/uL (0.3-0.8); MONOCYTES % (AUTO) 10.8 % (0.0-13.0); NEUTROPHILS # (AUTO) 3.3 x10^3/uL (2.2-4.8); NEUTROPHILS % (AUTO) 54.3 % (42.0-75.0); PLATELET COUNT 333 X10^3/uL (150.0-450.0); RED BLOOD COUNT 3.34 X10^6/uL (3.5-5.4); RED CELL DISTRIBUTION WIDTH 13.8 % (11.6-16.5); WHITE BLOOD COUNT 6.1 X10^3/uL (3.6-10.0)
[2018-12-28 07:57] LABS: ALANINE AMINOTRANSFERASE 23 Units/L (12-78); ALBUMIN 2.9 g/dL (3.4-5.0); ALKALINE PHOSPHATASE 230 Units/L (46-116); ASPARTATE AMINO TRANSFERASE 29 Units/L (15-37); BLOOD UREA NITROGEN 7 mg/dL (7-18); CARBON DIOXIDE 24.8 mmol/L (21-32); CHLORIDE 105 mmol/L (98-107); COR CA(FOR HYPOALB) 9.9 mg/dL (8.5-10.1); CREATININE 0.77 mg/dL (0.55-1.02); SODIUM 139 mmol/L (136-145); TOTAL PROTEIN 5.9 g/dL (6.4-8.2); eGFR NON BLACK RACES > 60 (>60)
[2018-12-28] MEDS: OXYBUTYNIN CHLORIDE ER PO SCH (08:54)
[2018-12-28] MEDS: ARICEPT TAB 10 MG PO SCH (08:54)
[2018-12-28] MEDS: TOPROL XL PO SCH (08:54)
[2018-12-28] MEDS: MEGACE PO SCH (08:55)
[2018-12-28] MEDS: COLACE CAP 100 MG PO SCH (08:55)
[2018-12-28] MEDS: MILK OF MAGNESIA PO SCH (08:55)
[2018-12-28] MEDS: LEVAQUIN TAB 250 MG PO SCH (08:55)
[2018-12-28] MEDS: NORVASC TAB 5 MG PO SCH (08:55)
[2018-12-28] MEDS: LOVENOX INJ 30 MG SYR SC SCH (09:14)
[2018-12-28] MEDS: CHECK PATCH XX SCH ×2 (09:14→21:35)
[2018-12-28] MEDS ORDERED: DURAGESIC 100 mcg/HR PATCH TD SCH (10:00)
[2018-12-28] MEDS ORDERED: MORPHINE SULFATE INJ 2 MG INJ IVP NR (11:56)
[2018-12-28] MEDS ORDERED: MORPHINE SULFATE PCA 30 MG IVP SCH (13:00)
[2018-12-28] MEDS: MORPHINE SULFATE PCA 30 MG IV PRN (14:13)
[2018-12-28] MEDS: ISOPTO ATROPINE SL PRN (14:13)
[2018-12-28] MEDS ORDERED: NS 1000 ML 1,000 ML IV PRN (14:16)
[2018-12-28] MEDS: VERSED 100 MG in NS 100 ML IV 80 ML IV PRN (16:54)
--- NOTE | 2018-12-28 20:04 | PCM.PROG ---
Progress Note - Progress Note for Day of Date of Exam: 12/28/18 - Subjective Subjective: WAS ADMITTED FOR FAILURE TO THRIVE, DEHYDRATION, GENERALIZED WEAKNESS, AND HIP PAIN FOLLOWING A FALL. SHE HAS A HISTORY OF DEMENTIA. FAMILY REPORTS THAT SHE HAS CONTINUED TO BE IN MODERATE TO SEVERE PAIN THROUGHOUT THE NIGHT. SHE IS MOANING ON MORNING ROUNDS, BUT IS OTHERWISE NOT RESPONSIVE TO VERBAL STIMULI. ON EXAMINATION, HEART IS REGULAR IN RATE AND RHYTHM. BILATERAL LUNGS ARE NOTED WITH DIMINISHED LUNG SOUNDS THROUGHOUT. ABDOMEN IS DISTENDED AND NOTED WITH TENDERNESS TO PALPATION. HYPOACTIVE BOWEL SOUNDS NOTED. HER VITALS THIS MORNING ARE 97.8-106-14-95%-144/95. LABS WERE OBTAINED. ABNORMAL LAB VALUES INCLUDE THE FOLLOWING: RBC 3.34, HGB 10.4, HCT 31.4, ALK PHOS 230, TOTAL PROTEIN 5.9, ALBUMIN 2.9. FAMILY REQUEST THAT PATIENT BE KEPT COMFORTABLE. TODAY, WE WILL INCREASE HER FENTANYL PATCH TO 100MCG/HR AND INCREASE VERSED TO 5MG/HR. OTHERWISE, WE WILL FOLLOW UP WITH AM LABS AND CONTINUE TO MONITOR. - Past Medical Family Social History Allergies: Allergies azithromycin Allergy (Verified 11/08/18 18:08) methylprednisolone Allergy (Verified 11/08/18 18:08) - Review of Systems ROS: No change since H&P - Vital Signs and I&O's Vital Signs: Temperature 97.9 F Pulse Rate [Left Brachial] 141 Pulse Rate 102 Respiratory Rate 16 Blood Pressure [Left Arm] 170/98 Blood Pressure [Right Arm] 119/74 Blood Pressure 132/86 O2 Sat by Pulse Oximetry 91 Intake and Output: Intake & Output 12/26/18 12/27/18 12/28/18 12/29/18 11:59 11:59 11:59 11:59 Intake Total 410 / 410 1196 / 1196 3164 / 3164 1285 / 1285 Output Total 2400 / 2400 1800 / 1800 700 / 700 Balance -1989 / 1196 / 1196 1364 / 1364 585 / 585 - Physical Exam Oriented: Unable to test Eyes: Normal Ear: Normal Nose: Normal Throat: Normal Respiratory: Generalized, Diminished Cardiovascular: Normal. negative: S3, S4, Murmur : Normal Auscultation: Bowel Sounds: Normal Palpation: Normal Tenderness: Normal Skin: Bruising Musculoskeletal: Left, Hip, Tender Psychiatric: Normal Mood Description: Calm Affect: Normal Speech Pattern: Inappropriate, Delayed - Laboratory and Diagnostics Result Diagrams: 12/28/18 07:42 12/28/18 07:42 Labs: 12/24/18 00:14 Blood Blood Culture - Preliminary 12/24/18 00:08 Blood Blood Culture - Preliminary Laboratory WBC 6.1 X10^3/uL (3.6-10.0) 12/28/18 07:42 RBC 3.34 X10^6/uL (3.5-5.4) L 12/28/18 07:42 Hgb 10.4 g/dL (12.0-16.0) L 12/28/18 07:42 Hct 31.4 % (36.0-47.0) L 12/28/18 07:42 MCV 94.2 fL (80.0-100.0) 12/28/18 07:42 MCH 31.1 pg (27.0-34.0) 12/28/18 07:42 MCHC 33.0 g/dL (33.0-35.0) 12/28/18 07:42 RDW 13.8 % (11.6-16.5) 12/28/18 07:42 Plt Count 333 X10^3/uL (150.0-450.0) 12/28/18 07:42 MPV 6.6 fL (7.4-11.0) L 12/28/18 07:42 Neut % (Auto) 54.3 % (42.0-75.0) 12/28/18 07:42 Lymph % (Auto) 27.8 % (21.0-51.0) 12/28/18 07:42 [place] % (Auto) 10.8 % (0.0-13.0) 12/28/18 07:42 Eos % (Auto) 6.2 % (0.9-2.9) H 12/28/18 07:42 Baso % (Auto) 0.9 % (0.2-1.0) 12/28/18 07:42 Neut # (Auto) 3.3 x10^3/uL (2.2-4.8) 12/28/18 07:42 Lymph # (Auto) 1.7 X10^3/uL (1.3-2.9) 12/28/18 07:42 [place] # (Auto) 0.7 x10^3/uL (0.3-0.8) 12/28/18 07:42 Eos # (Auto) 0.4 x10^3/uL (0.0-0.2) H 12/28/18 07:42 Baso # (Auto) 0.1 X10^3/uL (0.0-0.1) 12/28/18 07:42 Absolute Nucleated RBC 0.1 /100WBC 12/28/18 07:42 Sodium 139 mmol/L (136-145) 12/28/18 07:42 Corrected Sodium TNP 12/28/18 07:42 Potassium 4.3 mmol/L (3.5-5.1) 12/28/18 07:42 Chloride 105 mmol/L (98-107) 12/28/18 07:42 Carbon Dioxide 24.8 mmol/L (21-32) 12/28/18 07:42 BUN 7 mg/dL (7-18) 12/28/18 07:42 Creatinine 0.77 mg/dL (0.55-1.02) 12/28/18 07:42 Est GFR (MDRD) Af Amer > 60 (>60) 12/28/18 07:42 Est GFR (MDRD) Non-Af > 60 (>60) 12/28/18 07:42 Glucose 93 mg/dL (65-99) 12/28/18 07:42 Calcium 9.0 mg/dL (8.5-10.1) 12/28/18 07:42 Corrected Calcium 9.9 mg/dL (8.5-10.1) 12/28/18 07:42 Magnesium 2.1 mg/dL (1.7-2.9) 12/23/18 19:55 Total Bilirubin 0.30 mg/dL (0.2-1.0) 12/28/18 07:42 AST 29 Units/L (15-37) 12/28/18 07:42 ALT 23 Units/L (12-78) 12/28/18 07:42 Alkaline Phosphatase 230 Units/L (46-116) H 12/28/18 07:42 Total Protein 5.9 g/dL (6.4-8.2) L 12/28/18 07:42 Albumin 2.9 g/dL (3.4-5.0) L 12/28/18 07:42 Globulin 3.0 g/dL (2.5-4.5) 12/28/18 07:42 Albumin/Globulin Ratio 1.0 Ratio (1.1-2.1) L 12/28/18 07:42 Specimen Type Catherized urine 12/27/18 14:30 Urine Color Pale yellow (YELLOW) 12/27/18 14:30 Urine Appearance Clear (CLEAR) 12/27/18 14:30 Urine pH 7.0 (5.0 - 8.0) 12/27/18 14:30 Ur Specific [place] 1.010 (1.000-1.030) 12/27/18 14:30 Urine Protein Negative (NEGATIVE) 12/27/18 14:30 Urine Glucose (UA) Negative (NEGATIVE) 12/27/18 14:30 Urine Ketones Negative (NEGATIVE) 12/27/18 14:30 Urine Occult Blood 2+ (NEGATIVE) 12/27/18 14:30 Urine Nitrite Negative (NEGATIVE) 12/27/18 14:30 Urine Bilirubin Negative (NEGATIVE) 12/27/18 14:30 Urine Urobilinogen Normal (NORMAL) 12/27/18 14:30 Ur Leukocyte Esterase Negative (NEGATIVE) 12/27/18 14:30 Urine RBC 10-20 /HPF (NONE SEEN) 12/27/18 14:30 Urine WBC 0-2 /HPF (NONE SEEN) 12/27/18 14:30 Ur Squamous Epith Cells Negative /HPF (NEGATIVE) 12/27/18 14:30 Urine Bacteria Trace /HPF (NEGATIVE) 12/27/18 14:30 Ur Culture Indicated? No/not indicated 12/27/18 14:30 - Plan (1) Palliative care status Status: Acute Plan: FENTANYL PATCH, VERSED 5MG/HR IV, CONTINUE TO MONITOR (2) Failure to thrive Status: Acute Qualifiers: Failure to thrive age range: in adult Plan: CONTINUE TO MONITOR (3) Dehydration Status: Acute (4) Hypokalemia Status: Acute (5) Generalized weakness Status: Acute (6) Partial small bowel obstruction Status: Acute Plan: CONTINUE TO MONITOR (7) Intractable pain Status: Acute Plan: FENTANYL PATCH, VERSED 5MG/HR IV, CONTINUE TO MONITOR
[2018-12-29] MEDS: MORPHINE SULFATE PCA 30 MG IV PRN (05:26)
[2018-12-29] MEDS: DEMEROL INJ IVP PRN (09:35)
[2018-12-29] MEDS ORDERED: MORPHINE SULFATE PCA 30 MG IV PRN (10:01)
[2018-12-29] MEDS: CHECK PATCH XX SCH (10:08)
[2018-12-29] MEDS: ISOPTO ATROPINE SL PRN (10:09)
[2018-12-29] MEDS: VERSED 100 MG in NS 100 ML IV 80 ML IV PRN (11:30)
[2018-12-29 13:13] VITALS: BP 63/46
== END 2018-12-29 17:15 | disposition expired | DRG 641 ==
LOC: ER 19:00 → MED/SURG 19:00
PROVIDERS: ADMIT Internal Medicine; ATTEND Internal Medicine
DX: I51.7 Cardiomegaly; I25.10 Atherosclerotic heart disease of native coronary artery without angina pectoris; R26.89 Other abnormalities of gait and mobility; E78.2 Mixed hyperlipidemia; E87.6 Hypokalemia; Z91.81 History of falling; Z51.5 Encounter for palliative care; W18.39XA Other fall on same level, initial encounter; E86.0 Dehydration; K56.690 Other partial intestinal obstruction; R53.1 Weakness; I46.9 Cardiac arrest, cause unspecified; M25.552 Pain in left hip; G30.8 Other Alzheimer's disease; R63.0 Anorexia; R62.7 Adult failure to thrive
CPT/HCPCS: 36415; 36591; 70450; 71010; 71045; 73501; 74000; 74018; 80053; 81001; 83735; 85025; 87040; 94640; 94760; 96365; 96367; 99284; A4216; B5200; S0179; G0378; J1650; J2175; J2250; J2270; J2271; J3480; J7030; J7050; J7620